=== PATIENT | male | born 1965 | race Asian ===

== ENCOUNTER 2020-02-02 10:07 | Outpatient (REF) | payer OTHER, SELFPAY ==
[2020-02-02 11:41] LABS: Anion Gap 11 (12-20); Blood Urea Nitrogen 13 mg/dL (9-16); Calcium 8.7 mg/dL (8.4-10.2); Carbon Dioxide 31 mmol/L (22-29); Chloride 101 mmol/L (96-108); Cholesterol 193 mg/dL; Estimated Glomerular Filt Rate > 60; Glucose Fasting 104 mg/dL (60-99); HDL Cholesterol 45 mg/dL; LDL Cholesterol Calculated 126 mg/dl; Potassium 4.3 mmol/l (3.3-5.1); Sodium 139 mmol/L (135-145); Triglycerides 111 mg/dL
== END 2020-02-02 10:08 | disposition home or self-care (01) ==
LOC: HO.HMGCLDS 10:07
PROVIDERS: PCP Internal Medicine; Visit Provider Internal Medicine
DX: E78.9 Disorder of lipoprotein metabolism, unspecified (principal); R73.01 Impaired fasting glucose
CPT/HCPCS: 80048; 80061

== ENCOUNTER 2020-07-20 12:31 | Outpatient (REF) | payer BC, OTHER, SELFPAY ==
[2020-07-20 14:40] LABS: Carbon Dioxide 28 mmol/L (22-29); Chloride 103 mmol/L (96-108); Potassium 4.2 mmol/L (3.3-5.1); Sodium 139 mmol/L (135-145)
[2020-07-20 14:41] LABS: Alanine Aminotransferase 23 U/L (0-40); Albumin Level 4.3 g/dL (3.5-5.0); Alkaline Phosphatase 60 U/L (39-117); Anion Gap 12 (12-20); Aspartate Amino Transferase 19 U/L (5-37); Bilirubin Total 0.6 mg/dL (0.0-1.0); Blood Urea Nitrogen 12 mg/dL (9-16); Calcium 9.3 mg/dL (8.4-10.2); Cholesterol 194 mg/dL; Estimated Glomerular Filt Rate > 60; Glucose Fasting 102 mg/dL (60-99); HDL Cholesterol 46 mg/dL; LDL Cholesterol Calculated 123 mg/dl; Total Protein 7.2 g/dL (6.5-8.0); Triglycerides 127 mg/dL
== END 2020-07-20 12:32 | disposition home or self-care (01) ==
LOC: HO.HMGCLDS 12:31
PROVIDERS: PCP Internal Medicine; Visit Provider Internal Medicine
DX: E78.9 Disorder of lipoprotein metabolism, unspecified (principal); R73.01 Impaired fasting glucose
CPT/HCPCS: 36415; 80053; 80061

== ENCOUNTER 2021-05-31 08:14 | Outpatient (REF) | payer OTHER, MEDICAID, SELFPAY ==
[2021-05-31 11:34] LABS: Alanine Aminotransferase 20 U/L (0-40); Albumin Level 3.9 g/dL (3.5-5.0); Alkaline Phosphatase 50 U/L (39-117); Anion Gap 11 (12-20); Aspartate Amino Transferase 17 U/L (5-37); Bilirubin Total 0.6 mg/dL (0.0-1.0); Blood Urea Nitrogen 12 mg/dL (9-16); Calcium 9.2 mg/dL (8.4-10.2); Carbon Dioxide 28 mmol/L (22-29); Chloride 105 mmol/L (96-108); Cholesterol 196 mg/dL; Estimated Glomerular Filt Rate > 60; Glucose Fasting 111 mg/dL (60-99); HDL Cholesterol 42 mg/dL; LDL Cholesterol Calculated 125 mg/dl; Potassium 4.2 mmol/L (3.3-5.1); Sodium 140 mmol/L (135-145); Total Protein 6.8 g/dL (6.5-8.0); Triglycerides 148 mg/dL
[2021-05-31 11:59] LABS: Syphilis Screen Nonreactive (Nonreactive)
[2021-05-31 12:15] LABS: Estimated Average Glucose 137 mg/dL; Hemoglobin A1c % 6.4 %
[2021-05-31 12:20] LABS: HBS Num1 0.33 mIU/mL (0-7.99); HIV AB/AG Nonreactive (Nonreactive); HIV Num 1 0.07 S/CO (0.00-0.99); ~HepC Num1 0.11 S/CO (0.00-0.79); ~Hepatitis B Surface Antibody NONREACTIVE (Nonreactive); ~Hepatitis C Antibody Nonreactive (Nonreactive)
[2021-06-01 06:17] LABS: Herpes Simplex Type 1 IgG <0.90 index; Herpes Simplex Type 2 IgG 3.94 index
== END 2021-05-31 08:15 | disposition home or self-care (01) ==
LOC: HO.HMGCLDS 08:14
PROVIDERS: PCP Internal Medicine; Visit Provider Internal Medicine
DX: Z11.3 Encounter for screening for infections with a predominantly sexual mode of transmission (principal); E78.9 Disorder of lipoprotein metabolism, unspecified; J45.909 Unspecified asthma, uncomplicated; R73.01 Impaired fasting glucose
CPT/HCPCS: 36415; 80053; 80061; 83036; 86695; 86696; 86706; 86780; 86803; 87389

== ENCOUNTER 2021-09-19 09:30 | Outpatient (RCR) | payer OTHER, MEDICAID, SELFPAY ==
--- NOTE | 2021-08-24 13:59 | MHC.OT.EP ---
[address] [phone] Occupational Therapy Plan of Care Date of Evaluation: 08/24/21 Diagnosis: Right lateral epicondylis Assessment: Pt. was referred to OT for R lateral epicondylitis. Pt. reports R elbow pain started before T[place] and believed it was from playing pool. He stopped playing, and sustained a slip and fall on the ice one week later. That pain resolved, although R lateral elbow pain persists, with occasional radiating pain and tingling to forearm and wrist. Pt. has trialed rest, ice, and ibuprofen consistently without relief. R elbow and wrist ROM and strength are within normal limits, although pt. is having consistent pain with daily activities and is unable to work out at the gym. A 13% limitation is reported per the Quick DASH assessment. Ongoing skilled OT is recommended to address previously noted barriers and assist in return to PLOF. Frequency and Duration: The patient will be seen 2x/wk for 4 weeks Short Term Goals: IND with HEP IND with orthosis use as needed IND with joint protection techniques and activity modification Report <2/10 pain with BADL's/IADL's Wire Rope Fabrication Supervisor Goals: Pain free with BADL's/IALD's IND with progression of HEP QUICK DASH <8% R gross grasp >90# Treatment Plan: Therapeutic Exercise Therapeutic Activity Home Exercise Program Splinting Patient Education Ultrasound NMES Iontophoresis MHP Cold Packs Soft Tissue Mobilization Kinesiotaping Electronically Signed By: Lali Mckeon MS OTR/L Please Sign and return to therapist. Thank you once again for your referral.
== END 2021-12-13 13:57 | disposition home or self-care (01) ==
LOC: HO.OT 09:30
PROVIDERS: PCP Internal Medicine; Visit Provider Physician Assistant
DX: M77.11 Lateral epicondylitis, right elbow (principal)
CPT/HCPCS: 97033; 97035; 97110; 97140; 97165

== ENCOUNTER 2021-11-28 08:50 | Outpatient (REF) | payer OTHER, MEDICAID, SELFPAY ==
[2021-11-28 11:34] LABS: Estimated Average Glucose 146 mg/dL; Hemoglobin A1c % 6.7 %
[2021-11-28 11:46] LABS: Alanine Aminotransferase 25 U/L (0-40); Albumin Level 4.2 g/dL (3.5-5.0); Alkaline Phosphatase 55 U/L (39-117); Anion Gap 13 (12-20); Aspartate Amino Transferase 18 U/L (5-37); Bilirubin Total 0.4 mg/dL (0.0-1.0); Blood Urea Nitrogen 16 mg/dL (9-16); Calcium 8.9 mg/dL (8.4-10.2); Carbon Dioxide 26 mmol/L (22-29); Chloride 104 mmol/L (96-108); Estimated Glomerular Filt Rate > 60; Glucose Random 117 mg/dL (60-115); Potassium 4.3 mmol/L (3.3-5.1); Sodium 139 mmol/L (135-145); Total Protein 7.1 g/dL (6.5-8.0)
[2021-11-28 12:08] LABS: Creatinine Urine 115.98 mg/dL; Microalbumin Urine < 5.0 mg/L
== END 2021-11-28 08:51 | disposition home or self-care (01) ==
LOC: HO.HMGCLDS 08:50
PROVIDERS: PCP Internal Medicine; Visit Provider Internal Medicine
DX: E11.9 Type 2 diabetes mellitus without complications (principal); E78.9 Disorder of lipoprotein metabolism, unspecified; J45.909 Unspecified asthma, uncomplicated
CPT/HCPCS: 36415; 80053; 82043; 83036

== ENCOUNTER 2022-05-09 07:50 | Outpatient (REF) | payer BC, MEDICAID, SELFPAY ==
[2022-05-09 11:54] LABS: MANUAL DIFF FLAG NO
[2022-05-09 12:02] LABS: Basophils Percent Auto 0.6 % (0-2); Eosinophils Percent Auto 0.9 % (0-4); Hematocrit 40.7 % (42.0-52.0); Hemoglobin 13.8 g/dl (14.0-18.0); Imm Gran Abs Auto 0.01 X10*3/uL (0.00-0.03); Imm Gran Pct Auto 0.2 % (0.0-0.4); Lymphocytes Absolute Auto 1.3 X10*3/uL (1.2-4.9); Lymphocytes Percent Auto 27.4 % (20-40); Mean Corpuscular HGB Conc 33.9 g/dl (31.0-36.0); Mean Corpuscular Hemoglobin 28.6 pg (27.0-33.0); Mean Corpuscular Volume 84.3 fL (80.0-98.0); Mean Platelet Volume 10.1 fL (9.4-12.4); Monocytes Absolute Auto 0.4 X10*3/uL (0.1-1.2); Monocytes Percent Auto 8.6 % (2-11); Neutrophils Absolute Auto 2.9 x10*3/uL (2.0-8.3); Neutrophils Percent Auto 62.3 % (45-73); Platelet Count 187 X10*3/uL (160-400); Red Blood Count 4.83 X10*6/uL (4.60-5.80); Red Cell Distribution Width 12.4 % (11.0-16.0); White Blood Count 4.7 X10*3/uL (4.8-10.8)
[2022-05-09 12:11] LABS: Creatinine Urine 113.23 mg/dL; Microalbumin Urine < 5.0 mg/L
[2022-05-09 12:42] LABS: Alanine Aminotransferase 26 U/L (0-40); Alkaline Phosphatase 53 U/L (39-117); Anion Gap 14 (12-20); Aspartate Amino Transferase 19 U/L (5-37); Bilirubin Total 0.5 mg/dL (0.0-1.0); Blood Urea Nitrogen 14 mg/dL (9-16); Calcium 8.9 mg/dL (8.4-10.2); Carbon Dioxide 24 mmol/L (22-29); Chloride 105 mmol/L (96-108); Cholesterol 243 mg/dL; Estimated Glomerular Filt Rate > 60; Glucose Fasting 111 mg/dL (60-99); HDL Cholesterol 42 mg/dL; LDL Cholesterol Calculated 171 mg/dl; Sodium 139 mmol/L (135-145); Total Protein 6.7 g/dL (6.5-8.0); Triglycerides 150 mg/dL
[2022-05-09 12:51] LABS: Estimated Average Glucose 148 mg/dL; Hemoglobin A1c % 6.8 %
== END 2022-05-09 07:51 | disposition home or self-care (01) ==
LOC: HO.HMGCLDS 07:50
PROVIDERS: PCP Internal Medicine; Visit Provider Internal Medicine
DX: Z00.01 Encounter for general adult medical examination with abnormal findings (principal); E11.9 Type 2 diabetes mellitus without complications; E78.9 Disorder of lipoprotein metabolism, unspecified
CPT/HCPCS: 36415; 80053; 80061; 82043; 83036; 85025

== ENCOUNTER 2022-07-24 13:27 | Outpatient (REF) | payer BC, MEDICAID, SELFPAY ==
[2022-07-24 16:16] LABS: TSH reflex Free T4 0.92 uIU/mL (0.32-4.0)
== END 2022-07-24 13:28 | disposition home or self-care (01) ==
LOC: HO.LAB 13:27
PROVIDERS: PCP Internal Medicine; Visit Provider Nurse Practitioner
DX: R19.8 Other specified symptoms and signs involving the digestive system and abdomen (principal)
CPT/HCPCS: 36415; 84443

== ENCOUNTER 2022-09-12 07:42 | Outpatient (REF) | payer BC, SELFPAY ==
[2022-09-12 08:06] LABS: MANUAL DIFF FLAG NO
[2022-09-12 08:31] LABS: Basophils Percent Auto 0.4 % (0-2); Eosinophils Absolute Auto 0.1 X10*3/uL (0.0-0.4); Eosinophils Percent Auto 1.6 % (0-4); Hematocrit 41.5 % (42.0-52.0); Hemoglobin 14.1 g/dl (14.0-18.0); Imm Gran Abs Auto 0.03 X10*3/uL (0.00-0.03); Imm Gran Pct Auto 0.6 % (0.0-0.4); Lymphocytes Absolute Auto 1.5 X10*3/uL (1.2-4.9); Lymphocytes Percent Auto 29.6 % (20-40); Mean Corpuscular Hemoglobin 29.1 pg (27.0-33.0); Mean Corpuscular Volume 85.6 fL (80.0-98.0); Mean Platelet Volume 10.1 fL (9.4-12.4); Monocytes Absolute Auto 0.4 X10*3/uL (0.1-1.2); Neutrophils Percent Auto 59.8 % (45-73); Platelet Count 236 X10*3/uL (160-400); Red Blood Count 4.85 X10*6/uL (4.60-5.80); Red Cell Distribution Width 12.3 % (11.0-16.0)
[2022-09-12 08:46] LABS: Estimated Average Glucose 143 mg/dL; Hemoglobin A1c % 6.6 %
[2022-09-12 09:16] LABS: Alanine Aminotransferase 27 U/L (0-40); Albumin Level 3.9 g/dL (3.5-5.0); Alkaline Phosphatase 56 U/L (39-117); Anion Gap 10 (12-20); Aspartate Amino Transferase 17 U/L (5-37); Bilirubin Total 0.4 mg/dL (0.0-1.0); Blood Urea Nitrogen 12 mg/dL (9-16); Calcium 9.1 mg/dL (8.4-10.2); Carbon Dioxide 26 mmol/L (22-29); Chloride 105 mmol/L (96-108); Cholesterol 176 mg/dL; Estimated Glomerular Filt Rate > 60; Glucose Fasting 120 mg/dL (60-99); HDL Cholesterol 41 mg/dL; LDL Cholesterol Calculated 106 mg/dl; Sodium 137 mmol/L (135-145); Triglycerides 146 mg/dL
[2022-09-12 09:19] LABS: TSH reflex Free T4 1.26 uIU/mL (0.32-4.0)
[2022-09-12 11:23] LABS: Creatinine Urine 102.89 mg/dL; Microalbumin Urine < 5.0 mg/L
== END 2022-09-12 07:43 | disposition home or self-care (01) ==
LOC: HO.LAB 07:42
PROVIDERS: PCP Internal Medicine; Visit Provider Internal Medicine
DX: E11.9 Type 2 diabetes mellitus without complications (principal); E78.9 Disorder of lipoprotein metabolism, unspecified; R19.8 Other specified symptoms and signs involving the digestive system and abdomen; G47.20 Circadian rhythm sleep disorder, unspecified type
CPT/HCPCS: 36415; 80053; 80061; 82043; 83036; 84443; 85025

== ENCOUNTER 2022-09-19 08:16 | Outpatient (AMB) | payer BC, SELFPAY ==
[2022-09-19 08:33] VITALS: BP 110/70; PULSE 93; O2SAT 94; BMI 26.7
--- NOTE | 2022-09-19 08:33 | MHC.PC.OV ---
Vital Signs 09/19/22 08:33 Height 5 ft 9 in Weight 181 lb BMI 26.7 BP 110/70 Blood Pressure Location Rt brachial Position Sitting Pulse 93 Pulse Source Pulse Oximeter Pulse Oximetry (%) 94 Oxygen Delivery Method Room Air Intake Visit Reasons: 4m DM Allergies shrimp Allergy (Unknown, Verified 07/24/22 13:37) HIVES shellfish Allergy (Unknown, Uncoded 05/26/21 15:17) anaphylaxis Medication List - Last Reconciled 09/19/22 by Efrani Villarreal MD albuterol sulfate 90 mcg/actuation (ProAir HFA) 1 puff inhalation Q6H PRN atorvastatin 60 mg (1.5 x 40 mg) PO DAILY 90 days Tobacco use date assessed: 05/22/22 HPI 4m DM HPI Details Patient is a 57-year-old gentleman came in today for his regular 4 month follow-up appointment Labs done recently reviewed Patient is diet-controlled diabetic his hemoglobin A1c is 6.6 labs were done this month on 26 TSH level is normal LDL is 106 patient is on simvastatin 60 mg daily. Patient has seen Gastroenterology as well due to having recurrent bowel movements colonoscopy was negative. Patient would like to switch to [facility] as it is closer to his home and he can just walk over. [facility] Medical History Asthma, mild High cholesterol Lipid disorder Seborrheic dermatitis Surgical History H/O colonoscopy History of torsion of testis Family History Father No problems noted. Mother No problems noted. Paternal Aunt Lung cancer Smoker Diabetes mellitus Maternal Grandfather Diabetes mellitus CVD (cardiovascular disease) Sister No problems noted. 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 Elmo Mensah, Karen Cooper, Danial Weber and colleagues, with an educational tena from [employer]. Review of Systems Const Denies chills and Denies fever(s) ENT Denies epistaxis and Denies nasal discharge Card Denies chest pain Resp Denies chest congestion, Denies cough and Denies hemoptysis GI Denies diarrhea and Denies nausea Skin/Breast Denies rash Neuro Reports no additional complaints Psych Reports no additional complaints Endo Reports no additional complaints Physical exam (Primary Care) Vital Signs: Last Vital Signs Pulse 93 09/19/22 08:33 BP 110/70 09/19/22 08:33 Pulse Ox 94 09/19/22 08:33 Oxygen Delivery Method Room Air 09/19/22 08:33 BMI result Body Mass Index 26.7 Tobacco/Smoking Status: Tobacco use Status Tobacco use date assessed 05/22/22 09/19/22 08:35 Patient Tobacco Use Status Never used Tobacco 09/19/22 08:35 e-Cigarette/Vaping Use Never Used 09/19/22 08:35 Thrive Assessment: Date of Thrive Assessment Date Thrive assessed 05/26/21 09/19/22 08:35 Const General: cooperative, comfortable and no acute distress Orientation/consciousness: patient oriented x3 HENMT Head: Yes normocephalic Eyes General: appearance normal, both eyes and all related structures Neck Neck: Yes supple Resp Effort & Inspection: normal respiratory effort, no cough and no stridor Cardio Rhythm: regular rhythm Heart sounds: S1 normal heart sound present and S2 normal heart sound present Skin General skin exam: turgor normal Neuro General: patient oriented x3, tone normal and moves all extremities Extrem Right lower extremity: no edema Left lower extremity: no edema Assessment and Plan Assessment & Plan (1) Diet-controlled diabetes mellitus: Code(s): E11.9 - Type 2 diabetes mellitus without complications (2) Lipid disorder: Code(s): E78.9 - Disorder of lipoprotein metabolism, unspecified Plan Patient is a 57-year-old gentleman came in today for his regular 4 month follow-up appointment Labs done recently reviewed Patient is diet-controlled diabetic his hemoglobin A1c is 6.6 labs were done this month on 26 TSH level is normal LDL is 106 patient is on simvastatin 60 mg daily. Patient has seen Gastroenterology as well due to having recurrent bowel movements colonoscopy was negative. Patient would like to switch to [facility] as it is closer to his home and he can just walk over. Coding Level of Care Code Est Pt Level 3 (32627) Diagnoses Diet-controlled diabetes mellitus E11.9 Lipid disorder E78.9
== END 2022-09-19 13:12 | disposition home or self-care (01) ==
PROVIDERS: Visit Provider Internal Medicine
DX: E11.9 Type 2 diabetes mellitus without complications (principal); E78.9 Disorder of lipoprotein metabolism, unspecified
CPT/HCPCS: 99213

== ENCOUNTER 2022-10-26 08:18 | Outpatient (REF) | payer BC, SELFPAY ==
--- NOTE | ~2022-10-26 | FL_ITS ---
EXAMINATION: XR UPPER GI SERIES WITH SMALL BOWEL CLINICAL INFORMATION: Other specified symptoms and signs involving the digestive system COMPARISON: None available. TECHNIQUE: Upper GI and small bowel follow-through was performed using thin and thick barium and effervescent granules. FINDINGS: Esophageal motility is normal. There is a small sliding-type hiatal hernia and Schatzki ring. No gastroesophageal reflux is seen. The stomach and duodenum are normal-appearing. No fold thickening, mass, ulcer or stricture is seen. Small bowel motility is normal. Oral contrast reaches the colon at 65 minutes. The small bowel mucosal pattern is normal. No mass, evidence of obstruction, or fold thickening is seen. FLUOROSCOPY TIME: 1.1 minutes DOSE AREA PRODUCT: 11.6 gutierrez per centimeter squared. Total dose 37 mgy. 25 saved fluoroscopic images and 9 overhead images. FL/FL upper GI small bowel IMPRESSION: Small sliding-type hiatal hernia and Schatzki ring.
== END 2022-10-26 08:19 | disposition home or self-care (01) ==
LOC: HO.XRAY 08:18
PROVIDERS: PCP Internal Medicine; Visit Provider Nurse Practitioner
DX: R19.8 Other specified symptoms and signs involving the digestive system and abdomen (principal)
CPT/HCPCS: 74240; 74248

== ENCOUNTER → 2022-10-26 08:19 | Outpatient (BNV) | payer BC, SELFPAY | PROVIDERS: PCP Internal Medicine; Visit Provider Radiology Diagnostic Radiology | DX: R19.8 Other specified symptoms and signs involving the digestive system and abdomen (principal) | CPT/HCPCS: 74246 ==

== ENCOUNTER 2023-03-26 10:14 | Outpatient (AMB) | payer BC, SELFPAY ==
--- NOTE | 2023-03-26 10:14 | A.OFFPC_ITS ---
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 Villarreal / [facility] Intake Note: Patient is a new patient here to transfer care/DM Sharepoint Trainer Required: No Allergies shrimp Allergy (Unknown, Verified 03/26/23 10:15) HIVES shellfish Allergy (Unknown, Uncoded 03/26/23 10:15) anaphylaxis Medication List - Last Reconciled 03/26/23 by Ida Ramey MD albuterol sulfate 90 mcg/actuation (ProAir HFA) 1 puff inhalation Q6H PRN atorvastatin 60 mg (1.5 x 40 mg) PO DAILY 90 days Tobacco use date assessed: 03/26/23 Dental Screening Dental Screen Date: 03/26/23 Did you have a dental visit in the last 12 months?: Yes Did you have a dental problem in the last 6 months where you did not have access to dental care?: No Was dental information given to patient?: Patient has dentist HPI [employer] 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 Villarreal / [facility] HPI Details 57-year-old male with diabetes mellitus asthma Schatzki's ring hypercholesterolemia coming in for the 1st time. Patient has been seeing a doctor in [place].. Noted to have had upper GI series in October 2022 showing a small sliding hiatal hernia and Schatzki's ring.. congestion chest - 2 week , no fevers, , am cough, , GRECO at night no ear, sore throat PFSH Medical History (Updated 03/26/23 @ 11:15 by Ida Ramey MD) Right tennis elbow Viral wart on finger Bilateral plantar wart Encounter for general adult medical examination with abnormal findings Lipid disorder Seborrheic dermatitis Asthma, mild Surgical History (Updated 03/26/23 @ 10:53 by Ida Ramey MD) H/O colonoscopy History of torsion of testis Family History (Updated 03/26/23 @ 10:54 by Ida Ramey MD) Father No problems noted. Mother No problems noted. Paternal Aunt Lung cancer Smoker Diabetes mellitus Maternal Grandfather Diabetes mellitus CVD (cardiovascular disease) Sister No problems noted. 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 1. Little interest or pleasure in doing things: not at all 2. Feeling down, depressed, or hopeless: not at all 3. Trouble falling or staying asleep, or sleeping too much: not at all 4. Feeling tired or having little energy: not at all 5. Poor appetite or overeating: not at all 6. Feeling bad about yourself - or that you are a failure or have let yourself or your family down: not at all 7. Trouble concentrating on things, such as reading the newspaper or watching television: not at all 8. Moving or speaking so slowly that other people could have noticed. Or the opposite - being so fidgety or restless that you have been moving around a lot more than usual: not at all 9. Thoughts that you would be better off or of hurting yourself in some way: not at all Total score: 0 Depression Screening Interpretation: Negative Depression Screening Done: Yes Source: Developed by Drs. Elmo Mensah, Karen Cooper, Danial Weber and colleagues, with an educational tena from [employer]. Thrive Questionnaire Date Thrive assessed: 03/26/23 I am a: Patient What is your living situation today?: I have a steady place to live Within the past 12 months, did the food you bought not last and you didn't have the money to get more?: Never true Within the past 12 months, did you worry whether your food would run out before you got money to buy more?: Never true Do you have trouble paying for medicines?: No Do you have trouble getting transportation to medical appointments?: No Do you have trouble paying your heating and electricity bill?: No Do you have trouble taking care of your child, family member or friend?: No Do you have trouble with day-to-day activities such as bathing, preparing meals, shopping, managing finances, etc.?: No Are you currently unemployed and looking for a job?: No Are you interested in more education?: No Please select the resources that you would like help with: None THRIVE Score: 0 AUDIT C Alcohol Use Questionnaire (AUDIT-C) 1. How often do you have a drink containing alcohol?: Never 3. How often do you have six or more drinks on one occasion?: Never Total Score: 0 CHRIST-7 AMB Questionnaire CHRIST-7 Date CHRIST - 7 assessed: 03/26/23 Feeling nervous, anxious, or on edge: 0 = Not at all Not being able to stop or control worryin = Not at all Worrying too much about different things: 0 = Not at all Trouble relaxin = Not at all Being so restless that it is hard to sit still: 0 = Not at all Becoming easily annoyed or irritable: 0 = Not at all Feeling afraid as if something awful might happen: 0 = Not at all Total CHRIST-7 score (0-4 normal; 5-9 mild; 10-14 moderate; 15-21 severe): 0 Source: Developed by Drs. Elmo Mensah, Karen Cooper, Danial Weber and colleagues, with an educational tena from [employer]. Physical exam (Primary Care) Vital Signs: Last Vital Signs Pulse 80 03/26/23 10:16 BP 112/78 03/26/23 10:16 Pulse Ox 98 03/26/23 10:16 Oxygen Delivery Method Room Air 03/26/23 10:16 BMI result Body Mass Index 26.0 Tobacco/Smoking Status: Tobacco use Status Tobacco use date assessed 03/26/23 03/26/23 10:17 Patient Tobacco Use Status Never used Tobacco 03/26/23 10:17 e-Cigarette/Vaping Use Never Used 03/26/23 10:17 PHQ-9: PHQ-9 Score PHQ-9: Total score 0 03/26/23 10:45 Depression Screening Interpretation: Negative Thrive Assessment: Date of Thrive Assessment Date Thrive assessed 03/26/23 03/26/23 10:17 Const General: alert; No acute distress Eyes Conjunctivae: conjunctivae normal Resp Auscultation: clear to auscultation bilaterally Cardio Rate: regular rate Rhythm: regular rhythm GI Inspection: Yes normal to inspection Extrem General: Yes normal to inspection and No edema Results AMB Hemoglobin A1c AMB Hemoglobin A1c 7.9 % Last Edit by NICK Ayala on 03/26/23 10:37 Immunizations pneumoc 20-earlene conj-dip cr(PF) 0.5 mL IM syringe Performing Provider: Ida Ramey MD Performing Location: [facility] Administered by: NICK Ayala on 03/26/23 11:18 Dose Route Admin Location Dispensed Lot Number Expiration Date NDC Manager Food Beverage 0.5 mL IM Left Deltoid 0.5 mL [id number] 07/19/24 2913-0062-47 [id number] VIS Given Date VIS Provided VIS Publication Date 03/26/23 Single Vaccine 21 Eligibility Eligibility Date Funding Source Not VFC Eligible 03/26/23 Private Results Reviewed Results Reviewed: Laboratory Last Values Hgb A1c (Clinic) 7.9 % (4.0-6.0) H 03/26/23 09:27 Assessment and Plan Assessment & Plan (1) Type 2 diabetes mellitus with hyperglycemia: Code(s): E11.65 - Type 2 diabetes mellitus with hyperglycemia Plan: Decrease the amount of carbohydrate intake, pasta, bread, rice and potatoes are all sugar and that is aside from all the sweet stuff, remember that fruits are good but they are Sweet also. Hemoglobin A1c goal of less than 6.5. Patient is diet controlled had a long discussion with the patient regarding the hemoglobin A1c coming up to 7 point 6. Discussed about Ophthalmology evaluation yearly and foot exams (2) Hypercholesterolemia: Code(s): E78.00 - Pure hypercholesterolemia, unspecified Plan: Avoid fried foods, chicken skin, eggs, butter margarine, pastries and meat. Be it pork or beef they have a lot of cholesterol LDL goal of less than 130 and triglyceride of less than 150 patient is on atorvastatin 60 mg once a day discussed about repeating the blood work. (3) Hiatal hernia: Comment: October 2022 small sliding Code(s): K44.9 - Diaphragmatic hernia without obstruction or gangrene Plan: Avoid the foods that causes that usually spicy foods, tomato products, juices, coffee, soda and foods that your sensitive to. After eating do not lie down, allow 3-4 hours before in lie down. And keep the head of bed above 30 degrees to avoid the acid from going up. (4) Schatzki's ring: Comment: October 2022 Code(s): K22.2 - Esophageal obstruction Plan: Patient is not bothered by this. (5) Asthma, mild: Code(s): J45.909 - Unspecified asthma, uncomplicated Plan: Continue with the inhaler as needed (6) Upper respiratory infection: Code(s): J06.9 - Acute upper respiratory infection, unspecified Plan: Reassurance and discussed about Mucinex for productive cough, Delsym for dry cough and nasal sprays for congestion. If getting worse to reach out to us. Orders: Orders AMB Hemoglobin A1c Today E11.65 - Type 2 diabetes mellitus with hyperglycemia Complete Blood Count Auto Diff Today E11.65 - Type 2 diabetes mellitus with hyperglycemia Comprehensive Met. Panel Today E11.65 - Type 2 diabetes mellitus with hyperglycemia Free T4 (Free Thyroxine) Today E11.65 - Type 2 diabetes mellitus with hyperglycemia Thyroid Stimulating Hormone Today E11.65 - Type 2 diabetes mellitus with hyperglycemia Lipid Panel Today E11.65 - Type 2 diabetes mellitus with hyperglycemia, E78.00 - Pure hypercholesterolemia, unspecified Microalbumin, Random (w Creat) Today E11.65 - Type 2 diabetes mellitus with hyperglycemia Prostate Specific Antigen Scr Today E11.65 - Type 2 diabetes mellitus with hyperglycemia Pneumococcal 20 Immunization Today Z23 - Encounter for immunization Creatinine Urine Today E11.65 - Type 2 diabetes mellitus with hyperglycemia Vitamin B12 and Folate Today E11.65 - Type 2 diabetes mellitus with hyperglycemia Coding Level of Care Code Est Pt Level 4 (35304) Diagnoses Type 2 diabetes mellitus with hyperglycemia E11.65 Hypercholesterolemia E78.00 Hiatal hernia K44.9 Schatzki's ring K22.2 Asthma, mild J45.909 Upper respiratory infection J06.9
[2023-03-26 10:16] VITALS: BP 112/78; PULSE 80; O2SAT 98; BMI 26.0
== END 2023-03-26 11:20 | disposition home or self-care (01) ==
PROVIDERS: PCP Internal Medicine; Visit Provider Internal Medicine
DX: E11.65 Type 2 diabetes mellitus with hyperglycemia (principal); E78.00 Pure hypercholesterolemia, unspecified; K44.9 Diaphragmatic hernia without obstruction or gangrene; K22.2 Esophageal obstruction; J45.909 Unspecified asthma, uncomplicated; J06.9 Acute upper respiratory infection, unspecified; Z23 Encounter for immunization
CPT/HCPCS: 83036; 90471; 90677; 99214

== ENCOUNTER 2023-06-14 08:36 | Outpatient (REF) | payer BC, SELFPAY ==
[2023-06-14 09:02] LABS: MANUAL DIFF FLAG NO
[2023-06-14 09:35] LABS: Basophils Percent Auto 0.4 % (0-2); Eosinophils Absolute Auto 0.1 X10*3/uL (0.0-0.4); Eosinophils Percent Auto 1.3 % (0-4); Hematocrit 41.4 % (42.0-52.0); Imm Gran Abs Auto 0.02 X10*3/uL (0.00-0.03); Imm Gran Pct Auto 0.4 % (0.0-0.4); Lymphocytes Absolute Auto 1.4 X10*3/uL (1.2-4.9); Lymphocytes Percent Auto 30.3 % (20-40); Mean Corpuscular HGB Conc 33.8 g/dl (31.0-36.0); Mean Corpuscular Hemoglobin 29.2 pg (27.0-33.0); Mean Corpuscular Volume 86.3 fL (80.0-98.0); Mean Platelet Volume 9.2 fL (9.4-12.4); Monocytes Absolute Auto 0.4 X10*3/uL (0.1-1.2); Monocytes Percent Auto 7.9 % (2-11); Neutrophils Absolute Auto 2.8 x10*3/uL (2.0-8.3); Neutrophils Percent Auto 59.7 % (45-73); Platelet Count 270 X10*3/uL (160-400); Red Cell Distribution Width 12.6 % (11.0-16.0); White Blood Count 4.7 X10*3/uL (4.8-10.8)
[2023-06-14 10:06] LABS: Creatinine Urine 147.24 mg/dL; Microalbumin Urine < 5.0 mg/L
[2023-06-14 10:16] LABS: Alanine Aminotransferase 21 U/L (0-40); Albumin Level 4.2 g/dL (3.5-5.0); Alkaline Phosphatase 57 U/L (39-117); Anion Gap 13 (12-20); Aspartate Amino Transferase 15 U/L (5-37); Bilirubin Total 0.4 mg/dL (0.0-1.0); Blood Urea Nitrogen 13 mg/dL (9-16); Calcium 9.5 mg/dL (8.4-10.2); Carbon Dioxide 29 mmol/L (22-29); Chloride 104 mmol/L (96-108); Cholesterol 183 mg/dL (<200); Estimated Glomerular Filt Rate > 60; Glucose Random 119 mg/dL (60-115); HDL Cholesterol 43 mg/dL (>40); LDL Cholesterol Calculated 121 mg/dL (<100); Potassium 4.5 mmol/L (3.3-5.1); Sodium 141 mmol/L (135-145); Total Protein 7.4 g/dL (6.5-8.0); Triglycerides 95 mg/dL (<150)
[2023-06-14 10:26] LABS: Free T4 (Free Thyroxine) 0.89 ng/dL (0.71-1.85); Thyroid Stimulating Hormone 1.06 uIU/mL (0.32-4.0)
[2023-06-14 12:34] LABS: Folate 8.5 ng/mL (> or = 4.0); Prostate Specific Antigen Scr 0.86 ng/mL (<0.05-4.0); Vitamin B12 413 pg/mL (200-900)
== END 2023-06-14 08:37 | disposition home or self-care (01) ==
LOC: HO.LAB 08:36
PROVIDERS: PCP Internal Medicine; Visit Provider Internal Medicine
DX: Z12.5 Encounter for screening for malignant neoplasm of prostate (principal); E11.65 Type 2 diabetes mellitus with hyperglycemia; E78.00 Pure hypercholesterolemia, unspecified
CPT/HCPCS: 36415; 80053; 80061; 82043; 82570; 82607; 82746; 84153; 84439; 84443; 85025

== ENCOUNTER 2023-06-24 16:12 | Outpatient (AMB) | payer BC, SELFPAY ==
[2023-06-24 16:13] VITALS: BP 112/78; PULSE 75; O2SAT 98; BMI 24.2
--- NOTE | 2023-06-24 16:13 | A.OFFPC_ITS ---
Vital Signs 06/24/23 16:13 Height 5 ft 9 in Weight 164 lb 0.4 oz BMI 24.2 BP 112/78 Blood Pressure Location Lt brachial Position Sitting Pulse 75 Pulse Source Pulse Oximeter Pulse Oximetry (%) 98 Oxygen Delivery Method Room Air Intake Visit Reasons: Annual Exam/Diabetes mellitus Intake Note: Patient is here today for a physical. 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 Required: No Allergies shrimp Allergy (Unknown, Verified 06/24/23 16:13) HIVES shellfish Allergy (Unknown, Uncoded 06/24/23 16:13) anaphylaxis Medication List - Last Reconciled 06/24/23 by Ida Ramey MD albuterol sulfate 90 mcg/actuation (ProAir HFA) 1 puff inhalation Q6H PRN atorvastatin 60 mg (1.5 x 40 mg) PO DAILY 90 days Tobacco use date assessed: 06/24/23 Dental Screening Dental Screen Date: 06/24/23 Did you have a dental visit in the last 12 months?: Yes Did you have a dental problem in the last 6 months where you did not have access to dental care?: No Was dental information given to patient?: Patient has dentist HPI Annual Exam/Diabetes mellitus HPI Details 58-year-old male with diabetes mellitus hypercholesterolemia asthma coming in for follow-up. March last seen noted 12 lb weight loss. Patient is here for physical exam. [facility] Medical History (Updated 06/24/23 @ 16:53 by Ida Ramey MD) Right tennis elbow Viral wart on finger Bilateral plantar wart Encounter for general adult medical examination with abnormal findings Lipid disorder Seborrheic dermatitis Asthma, mild Surgical History (Updated 03/26/23 @ 10:53 by Ida Ramey MD) H/O colonoscopy History of torsion of testis Family History (Updated 03/26/23 @ 10:54 by Ida Ramey MD) Father No problems noted. Mother No problems noted. Paternal Aunt Lung cancer Smoker Diabetes mellitus Maternal Grandfather Diabetes mellitus CVD (cardiovascular disease) Sister No problems noted. 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 1. Little interest or pleasure in doing things: not at all 2. Feeling down, depressed, or hopeless: not at all 3. Trouble falling or staying asleep, or sleeping too much: not at all 4. Feeling tired or having little energy: not at all 5. Poor appetite or overeating: not at all 6. Feeling bad about yourself - or that you are a failure or have let yourself or your family down: not at all 7. Trouble concentrating on things, such as reading the newspaper or watching television: not at all 8. Moving or speaking so slowly that other people could have noticed. Or the opposite - being so fidgety or restless that you have been moving around a lot more than usual: not at all 9. Thoughts that you would be better off or of hurting yourself in some way: not at all Total score: 0 Depression Screening Interpretation: Negative Depression Screening Done: Yes Source: Developed by Drs. Elmo Mensah, Karen Cooper, Danial Weber and colleagues, with an educational tena from [employer]. Thrive Questionnaire Date Thrive assessed: 03/26/23 I am a: Patient What is your living situation today?: I have a steady place to live Within the past 12 months, did the food you bought not last and you didn't have the money to get more?: Never true Within the past 12 months, did you worry whether your food would run out before you got money to buy more?: Never true Do you have trouble paying for medicines?: No Do you have trouble getting transportation to medical appointments?: No Do you have trouble paying your heating and electricity bill?: No Do you have trouble taking care of your child, family member or friend?: No Do you have trouble with day-to-day activities such as bathing, preparing meals, shopping, managing finances, etc.?: No Are you currently unemployed and looking for a job?: No Are you interested in more education?: No Please select the resources that you would like help with: None Currently or been in a relationship where the following occur: no concerns reported THRIVE Score: 0 AUDIT C Alcohol Use Questionnaire (AUDIT-C) 1. How often do you have a drink containing alcohol?: Never 3. How often do you have six or more drinks on one occasion?: Never Total Score: 0 CHRIST-7 AMB Questionnaire CHRIST-7 Date CHRIST - 7 assessed: 06/24/23 Feeling nervous, anxious, or on edge: 0 = Not at all Not being able to stop or control worryin = Not at all Worrying too much about different things: 0 = Not at all Trouble relaxin = Not at all Being so restless that it is hard to sit still: 0 = Not at all Becoming easily annoyed or irritable: 0 = Not at all Feeling afraid as if something awful might happen: 0 = Not at all Total CHRIST-7 score (0-4 normal; 5-9 mild; 10-14 moderate; 15-21 severe): 0 Source: Developed by Drs. Elmo Mensah, Karen Cooper, Danial Weber and colleagues, with an educational tena from [employer]. Review of Systems Const Denies poor appetite and Denies weakness Eyes Denies no additional complaints ENT Reports Normal hearing present, Denies dizziness, Denies nasal congestion, Denies tinnitus and Denies sore throat Card Denies chest pain, Denies syncope, Denies rapid heart rate and Denies dyspnea Resp Denies cough and Denies dyspnea GI Denies change in stool character, Reports constipation, Denies diarrhea, Denies nausea and Denies vomiting Denies dysuria and Denies urinary frequency Neuro Reports Normal hearing present, Denies confusion, Denies dizziness, Denies syncope and Denies weakness Psych Denies confusion Physical exam (Primary Care) Vital Signs: Last Vital Signs Pulse 75 06/24/23 16:13 BP 112/78 06/24/23 16:13 Pulse Ox 98 06/24/23 16:13 Oxygen Delivery Method Room Air 06/24/23 16:13 BMI result Body Mass Index 24.2 Tobacco/Smoking Status: Tobacco use Status Tobacco use date assessed 06/24/23 06/24/23 16:14 Patient Tobacco Use Status Never used Tobacco 06/24/23 16:14 e-Cigarette/Vaping Use Never Used 06/24/23 16:14 PHQ-9: PHQ-9 Score PHQ-9: Total score 0 06/24/23 16:32 Depression Screening Interpretation: Negative Thrive Assessment: Date of Thrive Assessment Date Thrive assessed 03/26/23 06/24/23 16:14 Currently or been in a relationship where the following occur: no concerns reported Const General: No confusion Orientation/consciousness: No confusion HENMT Head: Yes normocephalic Ears: external ears normal and TM's normal bilaterally Face and sinus: Yes normal facial exam Mouth: moist mucous membranes Throat: Yes tonsils normal Eyes Conjunctivae: conjunctivae normal Pupils: Equal, round and reactive pupils present and Pupil accommodation reflex normal Direct Ophthalmoscopy: normal light reflex Neck Neck: No lymphadenopathy Thyroid: Thyroid normal Chest Chest palpation & inspection: normal inspection of the chest Resp Effort & Inspection: normal respiratory effort and no audible wheezes Auscultation: clear to auscultation bilaterally, no crackles, no wheezes and lung sounds not diminished Cardio Rate: regular rate Rhythm: regular rhythm Peripheral pulses: radial pulses present and dorsalis pedis present GI Other: guiaic negative prostate N Palpation (GI): no masses Auscultation: normal bowel sounds and normoactive bowel sounds Other: bilateral mild inguinal hernia Skin General skin exam: no rashes or lesions noted Rashes: no rashes Neuro General: No confusion Cranial nerves: Yes Equal, round and reactive pupils present and Yes Normal hearing present Cognition (Neuro): normal cognition Gait exam (Neuro): Normal gait present Motor exam (neuro): 5/5 motor strength present throughout Deep tendon reflexes (DTR's): Right brachioradialis reflex intensity grade: 2+, Left brachioradialis reflex intensity grade: 2+, Right patellar reflex intensity grade: 2+ and Left patellar reflex intensity grade: 2+ Extrem General: No edema Results AMB Hemoglobin A1c AMB Hemoglobin A1c 6.2 % Last Edit by NICK Ayala on 06/24/23 16:32 Results Reviewed Results Reviewed: Laboratory Last Values Hgb A1c (Clinic) 6.2 % (4.0-6.0) H 06/24/23 15:05 Assessment and Plan Assessment & Plan (1) Annual physical exam: Code(s): Z00.00 - Encounter for general adult medical examination without abnormal findings (2) Type 2 diabetes mellitus with hyperglycemia: Code(s): E11.65 - Type 2 diabetes mellitus with hyperglycemia Plan: Decrease the amount of carbohydrate intake, pasta, bread, rice and potatoes are all sugar and that is aside from all the sweet stuff, remember that fruits are good but they are Sweet also. Hemoglobin A1c goal of less than 6.5. Diet controlled (3) Hypercholesterolemia: Code(s): E78.00 - Pure hypercholesterolemia, unspecified Plan: Avoid fried foods, chicken skin, eggs, butter margarine, pastries and meat. Be it pork or beef they have a lot of cholesterol LDL goal of less than 100 and triglyceride of less than 150. On atorvastatin 60 mg once a day (4) Asthma, mild: Code(s): J45.909 - Unspecified asthma, uncomplicated Plan: Stable (5) Bilateral inguinal hernia: Code(s): K40.20 - Bilateral inguinal hernia, without obstruction or gangrene, not specified as recurrent Plan: avoid heavy lifting Orders: Orders AMB Hemoglobin A1c Today E11.65 - Type 2 diabetes mellitus with hyperglycemia Hemoglobin A1c 3 Months E78.00 - Pure hypercholesterolemia, unspecified Comprehensive Met. Panel 3 Months E78.00 - Pure hypercholesterolemia, unspecified Lipid Panel 3 Months E78.00 - Pure hypercholesterolemia, unspecified Medications: Changed From atorvastatin 60 mg (1.5 x 40 mg) PO DAILY 90 days 135 tabs 1RF To atorvastatin 80 mg (2 x 40 mg) PO DAILY 90 days 180 tabs 1RF Coding Level of Care Code Est Pt Prev Care 40-64y(37906) Diagnoses Annual physical exam Z00.00 Type 2 diabetes mellitus with hyperglycemia E11.65 Hypercholesterolemia E78.00 Asthma, mild J45.909 Bilateral inguinal hernia K40.20
== END 2023-06-24 16:57 | disposition home or self-care (01) ==
PROVIDERS: PCP Internal Medicine; Visit Provider Internal Medicine
DX: Z00.00 Encounter for general adult medical examination without abnormal findings (principal); E11.65 Type 2 diabetes mellitus with hyperglycemia; E78.00 Pure hypercholesterolemia, unspecified; J45.909 Unspecified asthma, uncomplicated; K40.20 Bilateral inguinal hernia, without obstruction or gangrene, not specified as recurrent
CPT/HCPCS: 83036; 99396

== ENCOUNTER 2024-03-02 08:08 | Outpatient (REF) | payer BC, SELFPAY ==
--- OUTSIDE RECORDS SUMMARY | 2024-03-02 08:11 | XMS_ITS | Patient Health Record ---
[facility] [place] Address [address] [place] [address] Care Team Providers Care Installer Interior Assemblies Name Role Phone Phil CABALLERO, [facility] Primary [facility] Provider Steve Alonzo Unavailable [phone] Allergies Allergen (clinical drug ingredient) Drug/Non Drug Allergy documented on EMR Reaction Allergy Type Onset Date Status Shellfish (FN) Shellfish-derived Products Unknown Drug Allergy Active Reason For Referral No Information Medications Medication SIG (Take, Route, Frequency, Duration) Notes Start Date End Date Status Atorvastatin Calcium 40 MG 1 tablet Oral ly Once a day for 30 day(s) Active ProAir HFA 108 (90 Base) MCG/ACT 1 puff as needed Inhalation every 4 hrs Active Cyclobenzaprine HCl Not-Taking Immunizations Vaccine Route Administration Date Status Comme nts COVID-19 Pfizer BioNTech Vaccine Unknown 02/03/2021 Administered 1st 05/03/2020 2nd 05/24/2020 Influenza Unknown 11/02/2020 Administered Social History Tobacco Use: Social History Observation Description Date Details (start date - stop date) Never Smoker NA - NA Tobacco Use/Smoking Question Answer Notes Are you a: nonsmoker Additional Findings: Tobacco Non-User Current no n-smoker Alcohol Screen Question Answer Notes Did you have a drink containing alcohol in the p ast year? No Points 0 Interpretation Negative Tobacco use other than smoking: Question Answer Notes Are you an other tobacco user? No Problems Problem Type SNOMED Code ICD Code Onset Dates Problem Status W/U Status Risk Notes Problem Plantar wart ([id number]) Plantar wart (B07.0) Active confirmed Plan Of Treatment Pending Test Test Name Order Date [id number] Destruction, 03-0312/21/2020 [id number] Destruction, 03-0301/03/2021 [id number]-Vzbr Destruction, 03-0301/24/2021 76134-Qqhu Destruction, 03-0304/28/2021 26649-Arae Destruction, 03-0306/23/2021 95672-Obsz Destruction, 03-0307/14/2021 93894-Ckto Destruction, 03-0308/04/2021 99367-Vquo Destruction, 03-0309/05/2021 03485 - Punch Biopsy of Skin Lesion 11/18 41116 - Punch Biopsy of Skin Additional Lesions 12/05/2020 Insurance Providers Payer Name Payer Address Payer Phone Subscriber Number Group Number Insured Name Patient Relationship to Insured Coverage Start Date Coverage End Date [facility] [address] [place] [phone] [id number] Elmo Arriola Self - patient is the insured Medical (General) History Medical History History ICD Code Lipid disorder asthma Pre Diabetes Seborrheic dermatitis Warts tendonitis Surgical History Surgery Date(Month/Year) Testicular Torsion Repair 1984
[2024-03-02 09:07] LABS: Estimated Average Glucose 128 mg/dL; Hemoglobin A1C 157.4751 umol/L; Hemoglobin A1c % 6.1 % (<6.0); Total Hemoglobin (HGBA1C) 3625.3814 umol/L
[2024-03-02 09:28] LABS: Alanine Aminotransferase 22 U/L (0-40); Alkaline Phosphatase 48 U/L (39-117); Anion Gap 10 (12-20); Aspartate Amino Transferase 22 U/L (5-37); Bilirubin Total 0.5 mg/dL (0.0-1.0); Blood Urea Nitrogen 16 mg/dL (9-16); Calcium 9.1 mg/dL (8.4-10.2); Carbon Dioxide 27 mmol/L (22-29); Chloride 107 mmol/L (96-108); Cholesterol 238 mg/dL (<200); Estimated Glomerular Filt Rate > 60; Glucose Random 107 mg/dL (60-115); HDL Cholesterol 47 mg/dL (>40); LDL Cholesterol Calculated 169 mg/dL (<100); Potassium 4.2 mmol/L (3.3-5.1); Sodium 140 mmol/L (135-145); Total Protein 6.9 g/dL (6.5-8.0); Triglycerides 111 mg/dL (<150)
[2024-03-02 09:42] LABS: Creatinine Urine 112.51 mg/dL
== END 2024-03-02 08:09 | disposition home or self-care (01) ==
LOC: HO.LAB 08:08
PROVIDERS: PCP Internal Medicine; Visit Provider Internal Medicine
DX: E11.65 Type 2 diabetes mellitus with hyperglycemia (principal); E78.00 Pure hypercholesterolemia, unspecified
CPT/HCPCS: 36415; 80053; 80061; 82570; 83036

== ENCOUNTER 2024-03-09 16:39 | Outpatient (AMB) | payer BC, SELFPAY ==
[2024-03-09 16:54] VITALS: BP 110/76; PULSE 74; TEMP 36.1; O2SAT 98; BMI 24.5
--- NOTE | 2024-03-09 16:54 | A.OFFPC_ITS ---
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 Required: No Accompanied by: Self / Same As Patient Allergies shrimp Allergy (Unknown, Verified 03/09/24 16:59) HIVES shellfish Allergy (Unknown, Uncoded 03/09/24 16:59) anaphylaxis Tobacco use date assessed: 03/09/24 Dental Screening Dental Screen Date: 03/09/24 Did you have a dental visit in the last 12 months?: Yes Did you have a dental problem in the last 6 months where you did not have access to dental care?: No Was dental information given to patient?: Patient has dentist HPI CholesterolDM HPI Details 58-year-old male with diabetes mellitus hypercholesterolemia bilateral inguinal hernia coming in for follow-up. Patient was last seen for physical recent blood work follow-up. On receiving the blood work results few days ago noted elevated cholesterol consecutively and was called. Patient has not been receiving the cholesterol medication due to some insurance issues and this was corrected and patient is now taking atorvastatin 80 mg once a day. Patient discussed about having plantar warts who has seen Podiatry and Dermatology and has been treated conservatively. [facility] Medical History (Updated 06/24/23 @ 16:53 by Ida Ramey MD) Right tennis elbow Viral wart on finger Bilateral plantar wart Encounter for general adult medical examination with abnormal findings Lipid disorder Seborrheic dermatitis Asthma, mild Surgical History (Updated 03/26/23 @ 10:53 by Ida Ramey MD) H/O colonoscopy History of torsion of testis Family History (Updated 03/26/23 @ 10:54 by Ida Ramey MD) Father No problems noted. Mother No problems noted. Paternal Aunt Lung cancer Smoker Diabetes mellitus Maternal Grandfather Diabetes mellitus CVD (cardiovascular disease) Sister No problems noted. 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 1. Little interest or pleasure in doing things: not at all 2. Feeling down, depressed, or hopeless: not at all 3. Trouble falling or staying asleep, or sleeping too much: not at all 4. Feeling tired or having little energy: not at all 5. Poor appetite or overeating: not at all 6. Feeling bad about yourself - or that you are a failure or have let yourself or your family down: not at all 7. Trouble concentrating on things, such as reading the newspaper or watching television: not at all 8. Moving or speaking so slowly that other people could have noticed. Or the opposite - being so fidgety or restless that you have been moving around a lot more than usual: not at all 9. Thoughts that you would be better off or of hurting yourself in some way: not at all Total score: 0 Depression Screening Interpretation: Negative Depression Screening Done: Yes 01847 - PHQ-9 Billing: Yes Source: Developed by Drs. Elmo Mensah, Karen Cooper, Danial Weber and colleagues, with an educational tena from [employer]. Thrive Questionnaire Date Thrive assessed: 03/09/24 I am a: Patient What is your living situation today?: I have a steady place to live Within the past 12 months, did the food you bought not last and you didn't have the money to get more?: Never true Within the past 12 months, did you worry whether your food would run out before you got money to buy more?: Never true Do you have trouble paying for medicines?: No Do you have trouble getting transportation to medical appointments?: No Do you have trouble paying your heating and electricity bill?: No Do you have trouble taking care of your child, family member or friend?: No Do you have trouble with day-to-day activities such as bathing, preparing meals, shopping, managing finances, etc.?: No Are you currently unemployed and looking for a job?: No Are you interested in more education?: No Please select the resources that you would like help with: None THRIVE Score: 0 AUDIT C Alcohol Use Questionnaire (AUDIT-C) 1. How often do you have a drink containing alcohol?: Never 3. How often do you have six or more drinks on one occasion?: Never Total Score: 0 CHRIST-7 AMB Questionnaire CHRIST-7 Date CHRIST - 7 assessed: 03/09/24 Feeling nervous, anxious, or on edge: 0 = Not at all Not being able to stop or control worryin = Not at all Worrying too much about different things: 0 = Not at all Trouble relaxin = Not at all Being so restless that it is hard to sit still: 0 = Not at all Becoming easily annoyed or irritable: 0 = Not at all Feeling afraid as if something awful might happen: 0 = Not at all Total CHRIST-7 score (0-4 normal; 5-9 mild; 10-14 moderate; 15-21 severe): 0 Source: Developed by Drs. Elmo Mensah, Karen Cooper, Danial Weber and colleagues, with an educational tena from [employer]. CHRIST-7 Assessment Billing CHRIST-7 Assessment Tool: CHRIST-7 Assessment 00398 Physical exam (Primary Care) Vital Signs: Last Vital Signs Temp 96.9 F 03/09/24 16:54 BMI result Body Mass Index 24.5 Tobacco/Smoking Status: Tobacco use Status Tobacco use date assessed 06/24/23 03/09/24 16:55 Patient Tobacco Use Status Never used Tobacco 03/09/24 16:55 e-Cigarette/Vaping Use Never Used 03/09/24 16:55 Depression Screening Interpretation: Negative Thrive Assessment: Date of Thrive Assessment Date Thrive assessed 03/26/23 03/09/24 16:55 Const General: alert; No acute distress Eyes Conjunctivae: conjunctivae normal Resp Auscultation: clear to auscultation bilaterally Cardio Rate: regular rate Rhythm: regular rhythm GI Inspection: Yes normal to inspection Extrem General: Yes normal to inspection and No edema Coding Level of Care Code Est Pt Level 4 (91476) Diagnoses Type 2 diabetes mellitus with hyperglycemia E11.65 Hypercholesterolemia E78.00 Asthma, mild J45.909 Additional Codes CHRIST-7 Assessment Billing - CHRIST-7 Assessment Tool: CHRIST-7 Assessment 03788 ([id number]) PHQ-9 - 98378 - PHQ-9 Billing: Yes ([id number]) Assessment & Plan Assessment & Plan (1) Type 2 diabetes mellitus with hyperglycemia: Code(s): E11.65 - Type 2 diabetes mellitus with hyperglycemia Category: Medical Plan: diet controlled. Decrease the amount of carbohydrate intake, pasta, bread, rice and potatoes are all sugar and that is aside from all the sweet stuff, remember that fruits are good but they are Sweet also. Discussed about the side effects/complications of diabetes with regards to visual and reminded about Ophthalmology evaluation. Had discussion regarding checking the feet also has diabetes effects the nerve as well as blood supply. (2) Hypercholesterolemia: Code(s): E78.00 - Pure hypercholesterolemia, unspecified Category: Medical Plan: noted increase in LDL , med refill done and is now taking the 80 mg of atorvastatin with no problems. Will have to retested blood work in 3 months. (3) Asthma, mild: Code(s): J45.909 - Unspecified asthma, uncomplicated Category: Medical Plan: stable on albuterol Orders: Orders Prostate Specific Antigen Scr 3 Months E11.65 - Type 2 diabetes mellitus with hyperglycemia Free T4 (Free Thyroxine) 3 Months E11.65 - Type 2 diabetes mellitus with hyperglycemia Thyroid Stimulating Hormone 3 Months E11.65 - Type 2 diabetes mellitus with hyperglycemia
== END 2024-03-09 17:19 | disposition home or self-care (01) ==
PROVIDERS: PCP Internal Medicine; Visit Provider Internal Medicine
DX: E11.65 Type 2 diabetes mellitus with hyperglycemia (principal); E78.00 Pure hypercholesterolemia, unspecified; J45.909 Unspecified asthma, uncomplicated

== ENCOUNTER → 2024-03-09 16:39 | Outpatient (BNVA) | payer BC, SELFPAY | PROVIDERS: PCP Internal Medicine; Visit Provider Internal Medicine | DX: E11.65 Type 2 diabetes mellitus with hyperglycemia (principal); E78.00 Pure hypercholesterolemia, unspecified; J45.909 Unspecified asthma, uncomplicated; Z79.899 Other long term (current) drug therapy | CPT/HCPCS: 96127 ==

== ENCOUNTER 2024-06-06 08:32 | Outpatient (REF) | payer BC, SELFPAY ==
[2024-06-06 09:37] LABS: Estimated Average Glucose 140 mg/dL; Hemoglobin A1C 173.5618 umol/L; Hemoglobin A1c % 6.5 % (<6.0); Total Hemoglobin (HGBA1C) 3663.4497 umol/L
[2024-06-06 10:03] LABS: Alanine Aminotransferase 31 U/L (0-40); Alkaline Phosphatase 50 U/L (39-117); Aspartate Amino Transferase 24 U/L (5-37); Bilirubin Total 0.5 mg/dL (0.0-1.0); Blood Urea Nitrogen 11 mg/dL (9-16); Calcium 9.2 mg/dL (8.4-10.2); Cholesterol 179 mg/dL (<200); Estimated Glomerular Filt Rate > 60; Glucose Random 105 mg/dL (60-115); HDL Cholesterol 47 mg/dL (>40); LDL Cholesterol Calculated 107 mg/dL (<100); Total Protein 6.8 g/dL (6.5-8.0); Triglycerides 127 mg/dL (<150)
[2024-06-06 10:13] LABS: Prostate Specific Antigen Scr 1.18 ng/mL (<0.05-4.0)
[2024-06-06 10:14] LABS: Anion Gap 12 (12-20); Carbon Dioxide 25 mmol/L (22-29); Chloride 105 mmol/L (96-108); Free T4 (Free Thyroxine) 0.98 ng/dL (0.71-1.85); Potassium 4.3 mmol/L (3.3-5.1); Sodium 138 mmol/L (135-145); Thyroid Stimulating Hormone 1.19 uIU/mL (0.32-4.0)
== END 2024-06-06 08:33 | disposition home or self-care (01) ==
LOC: HO.LAB 08:32
PROVIDERS: PCP Internal Medicine; Visit Provider Internal Medicine
DX: E78.00 Pure hypercholesterolemia, unspecified (principal); E11.65 Type 2 diabetes mellitus with hyperglycemia; Z12.5 Encounter for screening for malignant neoplasm of prostate
CPT/HCPCS: 36415; 80053; 80061; 83036; 84153; 84439; 84443

== ENCOUNTER 2024-06-29 17:18 | Outpatient (AMB) | payer BC, SELFPAY ==
--- NOTE | 2024-06-29 17:22 | MHC.PC.OV ---
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 Required: No Accompanied by: Self / Same As Patient Allergies shrimp Allergy (Unknown, Verified 06/29/24 17:26) HIVES shellfish Allergy (Unknown, Uncoded 06/29/24 17:26) anaphylaxis Medication List - Last Reconciled 06/29/24 by Ida Ramey MD albuterol sulfate 90 mcg/actuation (ProAir HFA) 1 puff inhalation Q6H PRN atorvastatin 80 mg PO DAILY Tobacco use date assessed: 03/09/24 Dental Screening Dental Screen Date: 03/09/24 [facility] Medical History (Updated 06/29/24 @ 17:50 by Ida Ramey MD) Right tennis elbow Viral wart on finger Bilateral plantar wart Encounter for general adult medical examination with abnormal findings Lipid disorder Seborrheic dermatitis Asthma, mild Surgical History H/O colonoscopy History of torsion of testis Family History Father No problems noted. Mother No problems noted. Paternal Aunt Lung cancer Smoker Diabetes mellitus Maternal Grandfather Diabetes mellitus CVD (cardiovascular disease) Sister No problems noted. 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 1. Little interest or pleasure in doing things: not at all 2. Feeling down, depressed, or hopeless: not at all 3. Trouble falling or staying asleep, or sleeping too much: several days 4. Feeling tired or having little energy: not at all 5. Poor appetite or overeating: not at all 6. Feeling bad about yourself - or that you are a failure or have let yourself or your family down: not at all 7. Trouble concentrating on things, such as reading the newspaper or watching television: not at all 8. Moving or speaking so slowly that other people could have noticed. Or the opposite - being so fidgety or restless that you have been moving around a lot more than usual: not at all 9. Thoughts that you would be better off or of hurting yourself in some way: not at all Total score: 1 26642 - PHQ-9 Billing: Yes Source: Developed by Drs. Elmo Mensah, Karen Cooper, Danial Weber and colleagues, with an educational tena from [employer]. Thrive Questionnaire Date Thrive assessed: 06/29/24 I am a: Patient What is your living situation today?: I have a steady place to live Within the past 12 months, did the food you bought not last and you didn't have the money to get more?: Never true Within the past 12 months, did you worry whether your food would run out before you got money to buy more?: Never true Do you have trouble paying for medicines?: No Do you have trouble getting transportation to medical appointments?: No Do you have trouble paying your heating and electricity bill?: No Do you have trouble taking care of your child, family member or friend?: No Do you have trouble with day-to-day activities such as bathing, preparing meals, shopping, managing finances, etc.?: No Are you currently unemployed and looking for a job?: No Are you interested in more education?: No Please select the resources that you would like help with: None Currently or been in a relationship where the following occur: No concerns reported THRIVE Score: 0 AUDIT C Alcohol Use Questionnaire (AUDIT-C) 1. How often do you have a drink containing alcohol?: Never 3. How often do you have six or more drinks on one occasion?: Never Total Score: 0 CHRIST-7 AMB Questionnaire CHRIST-7 Date CHRIST - 7 assessed: 06/29/24 Feeling nervous, anxious, or on edge: 0 = Not at all Not being able to stop or control worryin = Not at all Worrying too much about different things: 0 = Not at all Trouble relaxin = Not at all Being so restless that it is hard to sit still: 0 = Not at all Becoming easily annoyed or irritable: 0 = Not at all Feeling afraid as if something awful might happen: 0 = Not at all Total CHRIST-7 score (0-4 normal; 5-9 mild; 10-14 moderate; 15-21 severe): 0 Source: Developed by Drs. Elmo Mensah, Karen Cooper, Danial Weber and colleagues, with an educational tena from [employer]. CHRIST-7 Assessment Billing CHRIST-7 Assessment Tool: CHRIST-7 Assessment 39218 Review of Systems Const Denies poor appetite and Denies weakness Eyes Denies no additional complaints ENT Reports Normal hearing present, Denies dizziness, Denies nasal congestion, Denies tinnitus and Denies sore throat Card Denies chest pain, Denies syncope, Denies rapid heart rate and Denies dyspnea Resp Denies cough and Denies dyspnea GI Denies change in stool character, Reports constipation, Denies diarrhea, Denies nausea and Denies vomiting Denies dysuria and Denies urinary frequency Neuro Reports Normal hearing present, Denies confusion, Denies dizziness, Denies syncope and Denies weakness Psych Denies confusion Physical exam (Primary Care) Vital Signs: Last Vital Signs Temp 973 F H 06/29/24 17:25 Pulse 70 06/29/24 17:25 BP 124/82 06/29/24 17:25 Oxygen Delivery Method Room Air 06/29/24 17:25 BMI result Body Mass Index 24.2 Tobacco/Smoking Status: Tobacco use Status Tobacco use date assessed 03/09/24 06/29/24 17:23 Patient Tobacco Use Status Never used Tobacco 06/29/24 17:23 e-Cigarette/Vaping Use Never Used 06/29/24 17:23 PHQ-9: PHQ-9 Score PHQ-9: Total score 1 06/29/24 17:30 Thrive Assessment: Date of Thrive Assessment Date Thrive assessed 06/29/24 06/29/24 17:30 Currently or been in a relationship where the following occur: No concerns reported Const General: No confusion Orientation/consciousness: No confusion HENMT Head: Yes normocephalic Ears: external ears normal and TM's normal bilaterally Face and sinus: Yes normal facial exam Mouth: moist mucous membranes Throat: Yes tonsils normal Eyes Conjunctivae: conjunctivae normal Pupils: Equal, round and reactive pupils present and Pupil accommodation reflex normal Direct Ophthalmoscopy: normal light reflex Neck Neck: No lymphadenopathy Thyroid: Thyroid normal Chest Chest palpation & inspection: normal inspection of the chest Resp Effort & Inspection: normal respiratory effort and no audible wheezes Auscultation: clear to auscultation bilaterally, no crackles, no wheezes and lung sounds not diminished Cardio Rate: regular rate Rhythm: regular rhythm Peripheral pulses: radial pulses present and dorsalis pedis present GI Other: guaiac negative prostate N pedal pulse and pin prick good Palpation (GI): no masses Auscultation: normal bowel sounds and normoactive bowel sounds Other: bilateral inguinal hernia R > L Skin General skin exam: no rashes or lesions noted Rashes: no rashes Neuro General: No confusion Cranial nerves: Yes Equal, round and reactive pupils present and Yes Normal hearing present Cognition (Neuro): normal cognition Gait exam (Neuro): Normal gait present Motor exam (neuro): 5/5 motor strength present throughout Deep tendon reflexes (DTR's): Right brachioradialis reflex intensity grade: 2+, Left brachioradialis reflex intensity grade: 2+, Right patellar reflex intensity grade: 2+ and Left patellar reflex intensity grade: 2+ Extrem General: No edema Coding Level of Care Code Est Pt Prev Care 40-64y(23940) Diagnoses Annual physical exam Z00.00 Type 2 diabetes mellitus with hyperglycemia E11.65 Asthma, mild J45.909 Hypercholesterolemia E78.00 Additional Codes CHRIST-7 Assessment Billing - CHRIST-7 Assessment Tool: CHRIST-7 Assessment 26490 ([id number]) PHQ-9 - 30700 - PHQ-9 Billing: Yes ([id number]) Assessment & Plan Assessment & Plan (1) Annual physical exam: Code(s): Z00.00 - Encounter for general adult medical examination without abnormal findings Category: Medical Plan: Patient is advised to eat healthy, keep well hydrated, keep active and have adequate sleep. (2) Type 2 diabetes mellitus with hyperglycemia: Comment: vision works Code(s): E11.65 - Type 2 diabetes mellitus with hyperglycemia Category: Medical Plan: Decrease the amount of carbohydrate intake, pasta, bread, rice and potatoes are all sugar and that is aside from all the sweet stuff, remember that fruits are good but they are Sweet also. Hemoglobin A1c goal of less than 6.5. (3) Asthma, mild: Code(s): J45.909 - Unspecified asthma, uncomplicated Category: Medical Plan: On albuterol as needed (4) Hypercholesterolemia: Code(s): E78.00 - Pure hypercholesterolemia, unspecified Category: Medical Plan: Avoid fried foods, chicken skin, eggs, butter margarine, pastries and meat. Be it pork or beef they have a lot of cholesterol LDL goal of less than 100 and triglyceride of less than 150 Plan History of Present Illness The patient is a 59-year-old male presenting for an annual physical examination. His past medical history includes mild asthma, type 2 diabetes mellitus, hypercholesterolemia, and bilateral inguinal hernia. Last seen in February 2024, the patient exhibits controlled asthma with infrequent use of an albuterol inhaler. Diabetes management shows slight elevation in Hemoglobin A1c, now at 6.5%, and he practices dietary adjustments to control carbohydrate intake. Recent laboratory findings indicate a stable condition with normal electrolytes and renal and liver function. Current cholesterol management involves atorvastatin at the maximum dose; LDL cholesterol remains at 107 mg/dL. He highlights a family history of lung cancer and denies smoking and alcohol consumption. He mentions infrequent musculoskeletal discomfort and brief symptomatic episodes likely diet-related. Bowel movements show minor irregularities with alternating patterns of mild constipation and normal frequency. Health Maintenance - Continued monitoring of Hemoglobin A1c with a target of less than 6.5% for diabetes management. - Cholesterol management with an LDL goal of less than 100 mg/dL; current level at 107 mg/dL. - Cardiovascular risk reduction through cholesterol management with statins. - Lung cancer screenings not indicated given history, but advised watching for related symptoms. - Encourages regular eye exams with diabetes-focused evaluations. - Emphasizes regular physical activity and a balanced diet. - Immunizations up to date, including shingles vaccination. - Recommendations to hydrate well and avoid missing meals. Social History - Employment involves working from home. - Denies tobacco and alcohol use. - Dietary adjustments noted, mainly reducing carbohydrate intake. - Regular physical activity includes participating in town cleanup and exercising at a gym. - Reports a committed relationship, girlfriend noticed subcutaneous cyst. Review of Systems - Respiratory: Denies wheeze or shortness of breath. Reports well-controlled asthma. - Cardiovascular: Denies chest pain or heartburn. - Gastrointestinal: Reports irregular bowel movements, no blood in stool. - Musculoskeletal: Reports morning soreness, post-activity back pain. - Endocrine: Reports episode of symptomatic hypoglycemia. - Skin: Reports subcutaneous cyst; denies changes. - Genitourinary: Reports nocturia twice per night, otherwise normal. - Neurological: Denies any dizziness or syncope. - General: Reports weight loss. Physical Exam General: Cooperative, healthy appearing, comfortable, no acute distress and well developed Orientation: Patient oriented x3 Limitations: No limitations Head: Normal to inspection Ears: Hearing grossly normal bilaterally Nose: Normal external nose present Face and sinus: Normal facial exam Eyes: Appearance normal, both eyes and all related structures Neck: Normal visual inspection and Yes full ROM Respiratory: Normal respiratory effort and able to speak in complete sentences. Clear to auscultation bilaterally Cardiovascular: Regular rate and rhythm. Normal S1 and S2 GI: Normal to inspection. Soft to palpation and nontender Skin: No rashes or lesions noted Neuro: Patient oriented x3 Extremities: Normal to inspection Results - Labs: Hemoglobin A1c is 6.5%, LDL is 107 mg/dL. - Tests: Recent HDL cholesterol level is 47. Plan The plan addresses managing the patient's type 2 diabetes with a focus on reducing his Hemoglobin A1c through lifestyle changes and dietary modifications. Transitioning to rosuvastatin from atorvastatin was discussed for hypercholesterolemia management, aiming for an LDL level below 100 mg/dL. The patient?s asthma is well-managed with minimal use of an albuterol inhaler. Preventive measures are up-to-date, including immunizations, with his next step involving a lab follow-up in three months to evaluate the efficacy of current cholesterol management. Continuing active lifestyle and halting unnecessary carbohydrate intake are emphasized to prevent hypoglycemia and control diabetes. Patient was informed and verbally consented to the use of an ambient scribe for clinic note documentation during this visit. Discussion Notes I discussed with the patient the management of his chronic conditions, focusing on achieving optimal control of his diabetes and cholesterol levels. We reviewed the risks and benefits of transitioning from atorvastatin to rosuvastatin, emphasizing the potential for better LDL cholesterol lowering, even mentioning that further decreases could arise with injections if necessary. The significance of maintaining an A1c target of less than 6.5% for diabetes and the importance of lifestyle modifications was underscored, including dietary changes and meal regularity to avoid hypoglycemia. The patient consented to the treatment changes and was advised to continue with an active lifestyle and regular physical and dietary monitoring. Follow-up labs were arranged for three months later to assess treatment efficacy. Patient Instructions - Take the new cholesterol medication as prescribed and report any side effects. - Continue following a healthy diet with attention on reducing carbohydrate intake. - Stay active with regular exercise. - Monitor blood sugar levels regularly and eat balanced meals to prevent dips in blood sugar. - Schedule a follow-up lab test in three months. - Keep track of any new or worsening symptoms and inform as needed. - Stay hydrated and avoid skipping meals. - Ensure routine eye checks with the eye doctor as part of diabetes management. - - Orders: Orders Lipid Panel 3 Months E11.65 - Type 2 diabetes mellitus with hyperglycemia, E78.00 - Pure hypercholesterolemia, unspecified Hemoglobin A1c 3 Months E11.65 - Type 2 diabetes mellitus with hyperglycemia Comprehensive Met. Panel 3 Months E11.65 - Type 2 diabetes mellitus with hyperglycemia Medications: New rosuvastatin 40 mg PO DAILY 30 tabs 0RF E78.00 - Pure hypercholesterolemia, unspecified Discontinued atorvastatin Discontinued Reason: Doctor's Order 80 mg PO DAILY 90 tabs 2RF E78.00 - Pure hypercholesterolemia, unspecified
[2024-06-29 17:25] VITALS: BP 124/82; PULSE 70; TEMP 522.7; TEMP 973; BMI 24.2
== END 2024-06-29 18:01 | disposition home or self-care (01) ==
LOC: HO.HMCH 17:19
PROVIDERS: PCP Internal Medicine; Visit Provider Internal Medicine
DX: Z00.00 Encounter for general adult medical examination without abnormal findings (principal); E11.65 Type 2 diabetes mellitus with hyperglycemia; J45.909 Unspecified asthma, uncomplicated; E78.00 Pure hypercholesterolemia, unspecified

== ENCOUNTER → 2024-06-29 17:18 | Outpatient (BNVA) | payer BC, SELFPAY | PROVIDERS: PCP Internal Medicine; Visit Provider Internal Medicine | DX: Z00.00 Encounter for general adult medical examination without abnormal findings (principal); E11.65 Type 2 diabetes mellitus with hyperglycemia; J45.909 Unspecified asthma, uncomplicated; E78.00 Pure hypercholesterolemia, unspecified | CPT/HCPCS: 96127 ==

== ENCOUNTER 2024-10-06 07:11 | Outpatient (REF) | payer BC, SELFPAY ==
--- OUTSIDE RECORDS SUMMARY | 2024-10-06 07:14 | XMS_ITS | Encounter Summary ---
Author Organization [facility] Address [address] [place] [id number] Phone Care Team Providers Care Digester Name Role Phone Carlos Correia MD Primary Care Provider [phone] Encounter Details Date Type Department Care Team (Late st Contact Info) Description 05/15/2017 Procedure Pass [facility] Endoscopy Admitting Dept Virtual Department [address] [place] [address] Social History Tobacco Use Types Packs/Day Years Used Date Smoking Tobacco: Never Smokeless Tobacco: Never Alcohol Use Standard Drinks/Week Comments No 0 (1 standard drink = 0.6 oz pur e alcohol) Sex and Gender Information Value Date Recorded Sex Assigned at Not on file Legal Sex Male 9:38 PM EDT Gender Identity Not on file Sexual Orientation Not on file documented as of this encounter Plan of Treatment Not on file documented as of this encounter Visit Diagnoses Not on filedocumented in this encounter Care Teams Digester Relationship Specialty Start Date End Date Carlos Correia MD [address] [place] [id number] [email or web address] PCP - General 12/04/16 documented as of this encounter Additional Source Comments The information contained in this document represents components of the legal health record. It is not the complete legal health record.[facility]
--- OUTSIDE RECORDS SUMMARY | 2024-10-06 07:14 | XMS_ITS | Patient Health Record ---
Author [facility] [place] Address [address] [facility] [place] [address] Care Team Providers Care Unisaw Operator Name Role Phone Phil CABALLERO, [facility] Primary Care Provider Steve Alonzo Unavailable [phone] Allergies Allergen (clinical drug ingredient) Drug/Non Drug Allergy documented on EMR Reaction Allergy Type Onset Date Status Shellfish (FN) Shellfish-derived Products Unknown Drug Allergy Active Reason For Referral No Information Medications Medication SIG (Take, Route, Frequency, Duration) Notes Start Date End Date Status Atorvastatin Calcium 40 MG 1 tablet Oral ly Once a day; Duration: 30 day(s) Active ProAir HFA 108 (90 Base) MCG/ACT 1 puff as needed Inhalation every 4 hrs Active Cyclobenzaprine HCl Not-Taking Immunizations Vaccine Route Administration Date Status Comme nts Influenza Unknown 11/02/2020 Administered COVID-19 Pfizer BioNTech Vaccine Unknown 02/03/2021 Administered 1st 05/03/2020 2nd 05/24/2020 Social History Tobacco Use: Social History Observation [...] W/U Status Risk Notes Problem Plantar wart ([id number]) Plantar wart (B07.0) Active confirmed Plan Of Treatment Pending Test Test Name Order Date [id number] Destruction, 1-14 12/21/2020 01200-Wzse Destruction, 03-0301/03/2021 32343-Itkl Destruction, 03-0301/24/2021 86260-Iyrt Destruction, 03-0304/28/2021 42782-Ibtw Destruction, 03-0306/23/2021 56985-Qxfy Destruction, 03-0307/14/2021 20708-Lwoh Destruction, 03-0308/04/2021 29007-Bgwf Destruction, 03-0309/05/2021 49134 - Punch Biopsy of Skin Lesion 11/18 22390 - Punch Biopsy of Skin Additional Lesions 12/05/2020 Insurance Providers Payer Name Payer Address Payer Phone Subscriber Number Group Number Insured Name Patient Relationship to Insured Coverage Start Date Coverage End Date [facility] [id number] [place] [id number] Elmo Arriola Self - patient is the insured Medical (General) History Medical History History ICD Code Lipid disorder asthma Pre Diabetes Seborrheic dermatitis Warts tendonitis Surgical History Surgery Date(Month/Year) Testicular Torsion Repair 1984
[2024-10-06 08:32] LABS: Hemoglobin A1C 164.2059 umol/L; Total Hemoglobin (HGBA1C) 3614.0795 umol/L
[2024-10-06 08:48] LABS: Alanine Aminotransferase 31 U/L (0-40); Albumin Level 4.1 g/dL (3.5-5.0); Alkaline Phosphatase 49 U/L (39-117); Anion Gap 13 (12-20); Aspartate Amino Transferase 28 U/L (5-37); Blood Urea Nitrogen 14 mg/dL (9-16); Calcium 9.0 mg/dL (8.4-10.2); Carbon Dioxide 24 mmol/L (22-29); Chloride 106 mmol/L (96-108); Cholesterol 161 mg/dL (<200); Estimated Glomerular Filt Rate > 60; HDL Cholesterol 40 mg/dL (>40); Potassium 4.5 mmol/L (3.3-5.1); Sodium 138 mmol/L (135-145); Total Protein 6.9 g/dL (6.5-8.0); Triglycerides 122 mg/dL (<150)
== END 2024-10-06 07:12 | disposition home or self-care (01) ==
LOC: HO.LAB 07:11
PROVIDERS: PCP Internal Medicine; Visit Provider Internal Medicine
DX: E11.65 Type 2 diabetes mellitus with hyperglycemia (principal); E78.00 Pure hypercholesterolemia, unspecified
CPT/HCPCS: 36415; 80053; 80061; 83036

== ENCOUNTER 2024-10-14 14:43 | Outpatient (AMB) | payer BC, SELFPAY ==
--- NOTE | 2024-10-14 14:48 | MHC.PC.OV ---
Vital Signs 10/14/24 14:49 Height 5 ft 9 in Weight 167 lb 2 oz BMI 24.7 BP 108/72 Blood Pressure Location Lt brachial Position Sitting Pulse 82 Pulse Source Pulse Oximeter Temp 97.0 F Temp Source Temporal Artery Scan Pulse Oximetry (%) 100 Oxygen Delivery Method Room Air Intake Visit Reasons: DM , Cholesterol Allergies shrimp Allergy (Unknown, Verified 10/18/24 02:27) HIVES shellfish Allergy (Unknown, Uncoded 10/18/24 02:27) anaphylaxis Medication List - Last Reconciled 10/18/24 by Igor Garcia MD albuterol sulfate 90 mcg/actuation (ProAir HFA) 1 puff inhalation Q6H PRN atorvastatin (Lipitor) 80 mg PO DAILY 90 days Tobacco use date assessed: 10/14/24 Dental Screening Dental Screen Date: 10/14/24 Did you have a dental visit in the last 12 months?: Yes Did you have a dental problem in the last 6 months where you did not have access to dental care?: No Was dental information given to patient?: Patient has dentist HPI DM , Cholesterol HPI Details Patient comes in today for his follow-up visit States that he feels okay except for increasing pain over both shoulders, which he states have been bothering him for a while now He does not recall any recent injury or trauma to his shoulders He denies any headaches or dizziness Denies any chest pains, no shortness of breath No nausea/vomiting, no abdominal pain No change in bowel habits noted Needs his Atorvastatin Rx refilled He had his follow-up labs done last week - to discuss his results [facility] Medical History (Updated 10/18/24 @ 02:51 by Igor Garcia MD) Asthma Diabetes mellitus Right tennis elbow Viral wart on finger Bilateral plantar wart Encounter for general adult medical examination with abnormal findings Lipid disorder Seborrheic dermatitis Asthma, mild Surgical History H/O colonoscopy History of torsion of testis Family History Father No problems noted. Mother No problems noted. Paternal Aunt Lung cancer Smoker Diabetes mellitus Maternal Grandfather Diabetes mellitus CVD (cardiovascular disease) Sister No problems noted. 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 1. Little interest or pleasure in doing things: not at all 2. Feeling down, depressed, or hopeless: not at all 3. Trouble falling or staying asleep, or sleeping too much: several days 4. Feeling tired or having little energy: not at all 5. Poor appetite or overeating: not at all 6. Feeling bad about yourself - or that you are a failure or have let yourself or your family down: not at all 7. Trouble concentrating on things, such as reading the newspaper or watching television: not at all 8. Moving or speaking so slowly that other people could have noticed. Or the opposite - being so fidgety or restless that you have been moving around a lot more than usual: not at all 9. Thoughts that you would be better off or of hurting yourself in some way: not at all Total score: 1 Depression Screening Interpretation: Negative Depression Screening Done: Yes 72560 - PHQ-9 Billing: Yes Source: Developed by Drs. Elmo Mensah, Karen Cooper, Danial eWber and colleagues, with an educational tena from [employer]. Thrive Questionnaire Date Thrive assessed: 06/22/24 I am a: Patient What is your living situation today?: I have a steady place to live Within the past 12 months, did the food you bought not last and you didn't have the money to get more?: Never true Within the past 12 months, did you worry whether your food would run out before you got money to buy more?: Never true Do you have trouble paying for medicines?: No Do you have trouble getting transportation to medical appointments?: No Do you have trouble paying your heating and electricity bill?: No Do you have trouble taking care of your child, family member or friend?: No Do you have trouble with day-to-day activities such as bathing, preparing meals, shopping, managing finances, etc.?: No Are you currently unemployed and looking for a job?: No Are you interested in more education?: No Please select the resources that you would like help with: None Currently or been in a relationship where the following occur: No concerns reported THRIVE Score: 0 AUDIT C Alcohol Use Questionnaire (AUDIT-C) 1. How often do you have a drink containing alcohol?: Never 3. How often do you have six or more drinks on one occasion?: Never Total Score: 0 Score Reviewed/Action Taken: Yes CHRIST-7 AMB Questionnaire CHRIST-7 Date CHRIST - 7 assessed: 06/29/24 Feeling nervous, anxious, or on edge: 0 = Not at all Not being able to stop or control worryin = Not at all Worrying too much about different things: 0 = Not at all Trouble relaxin = Not at all Being so restless that it is hard to sit still: 0 = Not at all Becoming easily annoyed or irritable: 0 = Not at all Feeling afraid as if something awful might happen: 0 = Not at all Total CHRIST-7 score (0-4 normal; 5-9 mild; 10-14 moderate; 15-21 severe): 0 Source: Developed by Drs. Elmo Mensah, Karen Cooper, Danial Weber and colleagues, with an educational tena from [employer]. Review of Systems Const Denies chills, Denies fatigue, Denies fever(s) and Denies headache(s) ENT Denies dysphagia, Denies dizziness, Denies otalgia, Denies headache(s), Denies neck pain, Denies odynophagia and Denies sore throat Card Denies chest pain, Denies palpitations and Denies dyspnea Resp Denies chest congestion, Denies cough and Denies dyspnea GI Denies abdominal pain, Denies constipation, Denies dysphagia, Denies heartburn, Denies diarrhea, Denies nausea, Denies odynophagia and Denies vomiting Denies difficulty urinating, Denies dysuria, Denies nocturia and Denies urinary frequency Musc Denies back pain, Reports arthralgias (in both shoulders, increasing lately) and Denies neck pain Skin/Breast Denies rash Neuro Denies dizziness and Denies headache(s) Endo Denies fatigue and Denies palpitations Physical exam (Primary Care) Vital Signs: Last Vital Signs Temp 97.0 F 10/14/24 14:49 Pulse 82 10/14/24 14:49 BP 108/72 10/14/24 14:49 Pulse Ox 100 10/14/24 14:49 Oxygen Delivery Method Room Air 10/14/24 14:49 BMI result Body Mass Index 24.7 Tobacco/Smoking Status: Tobacco use Status Tobacco use date assessed 10/14/24 10/14/24 14:53 Patient Tobacco Use Status Never used Tobacco 10/14/24 14:53 e-Cigarette/Vaping Use Never Used 10/14/24 14:53 PHQ-9: PHQ-9 Score PHQ-9: Total score 1 10/14/24 15:40 Depression Screening Interpretation: Negative Thrive Assessment: Date of Thrive Assessment Date Thrive assessed 06/22/24 10/14/24 14:53 Currently or been in a relationship where the following occur: No concerns reported Const General: no acute distress and alert HENMT Ears: TM's normal bilaterally and EAC's normal Throat: Yes posterior oropharynx normal and Yes tonsils normal (no TP congestion) Neck Neck: Yes supple and No lymphadenopathy Thyroid: Thyroid normal Resp Auscultation: clear to auscultation bilaterally, no rales and no wheezes Cardio Rate: regular rate Rhythm: regular rhythm Heart sounds: no murmurs GI Palpation (GI): Soft to palpation and nontender Auscultation: normal bowel sounds General: Yes no CVA tenderness Back/Spine/Pelvis Back: no CVA tenderness Thoracic/Lumbar Spine: No lumbar spinal tenderness Skin Rashes: no rashes Extrem General: Yes no clubbing, cyanosis or edema Right upper extremity: shoulder/upper arm Details: tenderness; no swelling Left upper extremity: shoulder/upper arm Details: tenderness; no swelling Results Reviewed Results Reviewed: Laboratory Tests 10/06/24 07:26 Sodium 138 Potassium 4.5 Creatinine 0.80 Estimated GFR > 60 Random Glucose 102 Hemoglobin A1c % 6.3 H Calcium 9.0 AST 28 ALT 31 Triglycerides 122 Cholesterol 161 LDL Cholesterol, Calc 97 HDL Cholesterol 40 L Coding Level of Care Code Est Pt Level 4 (02060) Diagnoses Bilateral shoulder pain, unspecified chronicity M25.511; M25.512 Chronicity: unspecified Hypercholesterolemia E78.00 Type 2 diabetes mellitus without complication, without long-term current use of insulin E11.9 Diabetes mellitus type: type 2 Diabetes mellitus director of neurology insulin use: without residential use Diabetes mellitus complication status: without complication Mild intermittent asthma without complication J45.20 Asthma severity: mild Asthma persistence: intermittent Asthma complication type: uncomplicated Additional Codes PHQ-9 - 28010 - PHQ-9 Billing: Yes ([id number]) Assessment & Plan Assessment & Plan (1) Bilateral shoulder pain: Code(s): M25.511 - Pain in right shoulder; M25.512 - Pain in left shoulder Category: Medical Qualifiers: Chronicity: unspecified Qualified Code(s): M25.511 - Pain in right shoulder; M25.512 - Pain in left shoulder Plan: Suspect bursitis/tendinitis vs. OA of the shoulders Will send patient for x-rays of both shoulders for further evaluation (2) Hypercholesterolemia: Code(s): E78.00 - Pure hypercholesterolemia, unspecified Category: Medical Plan: Results of his labs done last week reviewed and discussed with patient Reinforced low cholesterol diet Continue Atorvastatin 80 mg QD Will have patient recheck her labs and fasting lipids in 4 months for follow up (3) Diabetes mellitus: Code(s): E11.9 - Type 2 diabetes mellitus without complications Category: Medical Qualifiers: Diabetes mellitus type: type 2 Diabetes mellitus residential insulin use: without director of neurology use Diabetes mellitus complication status: without complication Qualified Code(s): E11.9 - Type 2 diabetes mellitus without complications Plan: His HgbA1c was at 6.3% on his labs done last week - goal is at least <7.0% Reinforced diabetic diet Will recheck his FBS and HgbA1c in 4 months for follow up (4) Asthma: Code(s): J45.909 - Unspecified asthma, uncomplicated Category: Medical Qualifiers: Asthma severity: mild Asthma persistence: intermittent Asthma complication type: uncomplicated Qualified Code(s): J45.20 - Mild intermittent asthma, uncomplicated Plan: Continue Albuterol HFA 1 to 2 inhalations Q 6 hours PRN Plan Follow up with PCP in 4 months Orders: Orders XR shoulder LT min 2V 10/15/24 M25.512 - Pain in left shoulder Hemoglobin A1c 4 Months E11.9 - Type 2 diabetes mellitus without complications Microalbumin, Random (w Creat) 4 Months E11.9 - Type 2 diabetes mellitus without complications XR shoulder RT min 2V 10/15/24 M25.511 - Pain in right shoulder Complete Blood Count Auto Diff 4 Months D64.9 - Anemia, unspecified Comprehensive [facility]. Panel Fast 4 Months E78.00 - Pure hypercholesterolemia, unspecified Lipid Panel 4 Months E78.00 - Pure hypercholesterolemia, unspecified Medications: New atorvastatin (Lipitor) 80 mg PO DAILY 90 tabs 1RF 90 days
[2024-10-14 14:49] VITALS: BP 108/72; PULSE 82; TEMP 36.1; O2SAT 100; BMI 24.7
--- OUTSIDE RECORDS SUMMARY | 2024-10-14 16:06 | XMS_ITS | Encounter Summary ---
Author Organization [facility] Address [address] [place] [address] Phone Care Team Providers Care Fur Blowing Machine Operator Name Role Phone Carlos Correia MD Primary Care Provider [phone] Encounter Details Date Type Department Care Team (Late st Contact Info) Description 05/15/2017 Procedure Pass [facility] Endoscopy Admitting Dept Virtual Department [address] [place] [address] Social History Tobacco Use Types Packs/Day Years [...] on filedocumented in this encounter Care Teams Fur Blowing Machine Operator Relationship Specialty Start Date End Date Carlos Correia MD [address] [place] [id number] [email or web address] PCP - General 12/04/16 documented as of this encounter Additional Source Comments The information contained in this document represents components of the legal health record. It is not the complete legal health record.[facility]
--- OUTSIDE RECORDS SUMMARY | 2024-10-14 16:06 | XMS_ITS | Patient Health Record ---
[facility] [place] Address [address] [place] [address] Care Team Providers Care Rope Machine Setter Name Role Phone Phil CABALL[facility], [facility] Primary Care Provider Steve Alonzo Unavailable [phone] Allergies Allergen (clinical drug ingredient) Drug/Non Drug [...] W/U Status Risk Notes Problem Plantar wart ([id number]) Plantar wart (B07.0) Active confirmed Plan Of Treatment Pending Test Test Name Order Date [id number]-Gnqo Destruction, 1-14 12/21/2020 [id number]-Kdqw Destruction, 03-0301/03/2021 45656-Hkru Destruction, 03-0301/24/2021 27775-Qune Destruction, 03-0304/28/2021 60929-Qkym Destruction, 03-0306/23/2021 48382-Vfld Destruction, 03-0307/14/2021 91635-Buik Destruction, 03-0308/04/2021 29216-Vubj Destruction, 03-0309/05/2021 97303 - Punch Biopsy of Skin Lesion 11/18 00354 - Punch Biopsy of Skin Additional Lesions 12/05/2020 Insurance Providers Payer Name Payer Address Payer Phone Subscriber Number Group Number Insured Name Patient Relationship to Insured Coverage Start Date Coverage End Date [facility] [address] [place] [phone] [id number] Elmo Arriola Self - patient is the insured Medical (General) History Medical History History ICD Code Lipid disorder asthma Pre Diabetes Seborrheic dermatitis Warts tendonitis Surgical History Surgery Date(Month/Year) Testicular Torsion Repair 1984
--- OUTSIDE RECORDS SUMMARY | 2024-10-14 16:06 | XMS_ITS | Clinical Summary ---
Author Organization [facility] Address [address] [place] [address] Phone Care Team Providers Care Medical Billing Specialist Name Role Phone Carlos Correia MD Primary Care Provider Allergies Active Allergy Reactions Criticality Noted Date Comments Crab Hives 05/08/2017 Allergy to lobster Shrimp Hives 05/08/2017 Medications ibuprofen (ADVIL,MOTRIN) 200 MG tabletIndicatio ns:pain Take 200 mg by mouth as needed for pain (specific location in comments). Indications: Pain Active albuterol 90 mcg/actuation inhaler Inhale 2 puffs into the lungs as needed for wheezing. Active Social History Tobacco Use Types Packs/Day Years Used Date Smoking Tobacco: Never Smokeless Tobacco: Never Alcohol Use Standard Drinks/Week Comments No 0 (1 standard drink = 0.6 oz pur e alcohol) Education Answer Date Recorded Are you interested in more education? Not on herve e 06/15/2022 Are you concerned about learning? Not on file 06/15/2022 No 06/15/2022 No 06/15/2022 Digital Access Answer Date Recorded No 07/14/2022 No 07/14/2022 No 07/14/2022 Reliable internet access at home? Not on file 07/14/2022 Device with a working camera? Not on file Sex and Gender Information Value Date Recorded Sex Assigned at Not on file Legal Sex Male 9:38 PM EDT Gender Identity Not on file Sexual Orientation Not on file Last Filed Vital Signs Vital Sign Reading Time Taken Comments Blood Pressure 108/68 05/15/2017 8:28 AM EDT Pulse 74 05/15/2017 8:14 AM EDT Temperature - - Respiratory Rate 16 05/15/2017 8:28 AM EDT Oxygen Saturation 97% 05/15/2017 8:28 AM EDT Inhaled Oxygen Concentration - - Weight 78 kg (172 lb) 05/08/2017 9:00 AM EDT Height 175.3 cm (5' 9 ) 05/08/2017 9:00 AM EDT Body Mass Index 25.4 05/08/2017 9:00 AM EDT Plan of Treatment Health Maintenance Due Date Last Done Comments DEPRESSION SCREENING 1979 HEPATITIS C SCREENING 1985 HIV ONE-TIME SCREENING (18-6 5 YEARS) 1985 COLOGUARD 2012 FIT TEST 2012 FOBT 2012 SIGMOIDOSCOPY 2012 VIRTUAL COLONOSCOPY 2012 PNEUMOCOCCAL VACCINES (50+ years) (1 of 1 - PCV) 2017 ZOSTER VACCINES (1 of 2) 2017 LIPID PANEL 09/18/2021 09/18/2016 COVID-19 VACCINE (3 - 2023-2 5 season) 2023 05/24/2020, 05/03/2020 COLONOSCOPY 05/16/2027 05/15/2017 COLORECTAL CANCER SCREENING 05/16/2027 Adult Td,Tdap Booster 11/23/2027 11/22/2017 SMOKING STATUS SCREENING (On ce After 26 Yrs) Completed 05/15/2017 HEPATITIS A VACCINES Aged Out No long er eligible based on patient's age to complete this topic HIB VACCINES Aged Out No longer eligi ble based on patient's age to complete this topic MENINGOCOCCAL VACCINES (ACWY) Aged Out No longer eligible based on patient's age to complete this topic MENINGOCOCCAL VACCINES (B) Aged Out N o longer eligible based on patient's age to complete this topic Medical Devices Not on file Procedures Procedure Name Priority Date/Time Associated Diagnosis Comments ENDOSCOPY, COLON 05/15/2017 7:12 AM EDT from Last 3 Months or Most Recently Relevant to Health Maintenance Results * ENDOSCOPY, COLON (05/15/2017 7:12 AM EDT) Narrative Transcriptions Julissa Irizarry MD - 05/15/2017 7:12 AM EDT Patient Name: Elmo De Jesus MD:: Julissa IRIZARRY MD Procedure Date: 05/15/2017 7:12 AM Date of : 1965 Age: 52 Admit Type: Outpatient Gender: Male Room: [place] [address] Referring MD: CARLOS CORREIA MD Exam Type: Colonoscopy Indications: Ronceverte-rectal cancer screening Medications: Midazolam 4 mg IV, Fentanyl 50 micrograms IV Procedure: Informed consent was obtained from the patient after discussion of the indications, limitations,alternatives, benefits, and risks of the procedure. Risksspecifically discussed include but are not limited to bleeding, perforation, or the need for emergent surgery. Throughout the procedure, the patient's blood pressure, pulse, end-tidal CO2, and oxygen saturations were monitored continuously. The Olympus pediatric variable colonoscope [id number]-[id number] was introduced through the anus and advanced to thececum, identified by seeing the appendiceal orifice andileocecal valve. The exam was performed without difficulty, waswell tolerated by the patient, and the quality of the bowel prep was good. Complications: There were no immediate complications. There were no specimens. Blood loss - 0 Findings: Digital rectal exam was normal. The entire colon was normal in appearance, i.e., there were no polyps, tumors, diverticula, vascular malformations, or areas of inflammation. Impression: - Normal colonoscopy. Recommendation: - Repeat colonoscopy in 10 years. (The patient's father has had polyps removed, and if the patient can obtainhis father's pathology report, and the polyps were of significant size, repeat colonoscopy in 5 years may be reasonable) Julissa IRIZARRY MD 05/15/2017 8:14:55 AM This report has been signed electronically. Number of Addenda: 0 Note Initiated On: 05/15/2017 7:12 AM Procedure Code(s): --- Professional --- 73507, Colonoscopy, flexible; diagnostic, including collection of specimen(s) by brushing or washing, when performed (separateprocedure) --- Technical --- 23012, Colonoscopy, flexible; diagnostic, including collection of specimen(s) by brushing or washing, when performed (separateprocedure) CPT copyright 2016 [employer]. All rights reserved. The codes documented in this report are preliminary and upon certified coder reviewmay be revised to meet current compliance requirements. [address] [place] [address] Carlos Correia MD GI PROCEDURE ORDERABLES Mala l Result from Last 3 Months or Most Recently Relevant to Health Maintenance Insurance [facility] POS EPO [place] [email or web address] [facility] [place]PO [facility]PO [facility]PO [facility] EPO [facility] EPO Care Teams Medical Billing Specialist Relationship Specialty Start Date End Date Carlos Correia MD [address] [place] [phone] [email or web address] PCP - General 12/04/16 Additional Source Comments The information contained in this document represents components of the legal health record. It is not the complete legal health record.[facility]
== END 2024-10-14 15:48 | disposition home or self-care (01) ==
LOC: HO.HMCH 14:44
PROVIDERS: PCP Internal Medicine; Visit Provider Internal Medicine
DX: M25.511 Pain in right shoulder (principal); M25.512 Pain in left shoulder; E78.00 Pure hypercholesterolemia, unspecified; E11.9 Type 2 diabetes mellitus without complications; J45.20 Mild intermittent asthma, uncomplicated

== ENCOUNTER → 2024-10-14 14:43 | Outpatient (BNVA) | payer BC, SELFPAY | PROVIDERS: PCP Internal Medicine; Visit Provider Internal Medicine | DX: E11.9 Type 2 diabetes mellitus without complications (principal); M25.511 Pain in right shoulder; M25.512 Pain in left shoulder; E78.00 Pure hypercholesterolemia, unspecified; J45.20 Mild intermittent asthma, uncomplicated; D64.9 Anemia, unspecified | CPT/HCPCS: 96127 ==

== ENCOUNTER 2024-10-15 07:50 | Outpatient (REF) | payer BC, SELFPAY ==
--- NOTE | ~2024-10-15 | XR_ITS ---
EXAMINATION: XR SHOULDER, RIGHT CLINICAL INFORMATION: M25.511 - Pain in right shoulder COMPARISON: None available. TECHNIQUE: AP external rotation, Grashey, scapular Y, and axillary views of the right shoulder. FINDINGS: No acute cortical disruption or malalignment. No lytic or blastic lesions. No soft tissue calcifications. No metallic or radiopaque foreign body. XR/XR shoulder RT min 2V IMPRESSION: Normal x-ray right shoulder. Electronically signed by: Fab Montes De Oca MD 10/15/2024 08:09 AM EDT
--- NOTE | ~2024-10-15 | XR_ITS ---
EXAMINATION: XR SHOULDER, LEFT CLINICAL INFORMATION: M25.512 - Pain in left shoulder COMPARISON: None available. TECHNIQUE: AP external rotation, Grashey, scapular Y, and axillary views of the left shoulder. FINDINGS: Limited Grashey projection. No acute cortical disruption or malalignment. No lytic or blastic lesions. No soft tissue calcifications. No metallic or radiopaque foreign body. XR/XR shoulder LT min 2V IMPRESSION: Normal x-ray, left shoulder. Electronically signed by: Fab Montes De Oca MD 10/15/2024 08:08 AM EDT
--- OUTSIDE RECORDS SUMMARY | 2024-10-15 07:55 | XMS_ITS | Clinical Summary ---
Author Organization [facility] Address [address] [place] [address] Phone Care Team Providers Care Hand Violin Maker Name Role Phone Carlos Correia MD Primary [...] 52 Admit Type: Outpatient Gender: Male Room: [place] [address] Referring MD: CARLOS CORREIA MD Exam Type: Colonoscopy Indications: Willis-rectal cancer screening Medications: Midazolam 4 mg IV, [...] 7:12 AM Procedure Code(s): --- Professional --- 14850, Colonoscopy, flexible; diagnostic, including collection of specimen(s) by brushing or washing, when performed (separateprocedure) --- Technical --- 75292, Colonoscopy, flexible; diagnostic, including collection of specimen(s) by brushing or washing, when performed (separateprocedure) CPT copyright 2016 [employer]. All rights reserved. The codes documented in this report are preliminary and upon middle school football coach reviewmay be revised to meet current compliance requirements. [address] [place] [address] Carlos Correia MD GI PROCEDURE ORDERABLES Mala l Result from Last 3 Months or Most Recently Relevant to Health Maintenance Insurance [facility] POS EPO [place] [employer] [facility] POS EPO [facility] POS EPO [facility] POS EPO [facility] POS EPO [facility]PO [facility] POS E[facility] E[facility] Care Teams Hand Violin Maker Relationship Specialty Start Date End Date Carlos Correia MD [address] [place] [phone] [email or web address] PCP - General 12/04/16 Additional Source Comments The information contained in this document represents components of the legal health record. It is not the complete legal health record.[facility]
--- OUTSIDE RECORDS SUMMARY | 2024-10-15 07:55 | XMS_ITS | Encounter Summary ---
Author Organization [facility] Address [address] [place] [phone] Phone Care Team Providers Care Harbour Master Name Role Phone Carlos Correia MD Primary Care Provider [phone]- [phone] Encounter Details Date Type Department Care Team (Late st Contact Info) Description 05/15/2017 Procedure Pass [facility] Endoscopy Admitting Dept Virtual Department [address] [place] [address] Social History Tobacco Use Types Packs/Day Years [...] on filedocumented in this encounter Care Teams Harbour Master Relationship Specialty Start Date End Date Carlos Correia MD [address] [place] [phone] [email or web address] PCP - General 12/04/16 documented as of this encounter Additional Source Comments The information contained in this document represents components of the legal health record. It is not the complete legal health record.[facility]
--- OUTSIDE RECORDS SUMMARY | 2024-10-15 07:55 | XMS_ITS | Patient Health Record ---
Author Organization [facility] [place] Address [address] [place] [address] Care Team Providers Care Wholesale Buyer Name Role Phone Phil CABALLERO, [facility] Primary Care Provider Steve Alonzo Unavailable [phone] Allergies Allergen (clinical drug ingredient) Drug/Non Drug [...] W/U Status Risk Notes Problem Plantar wart (87180099) Plantar wart (B07.0) Active confirmed Plan Of Treatment Pending Test Test Name Order Date 78381-Jymy Destruction, 1-14 12/21/2020 95754-Mjpm Destruction, 03-0301/03/2021 52221-Ciwh Destruction, 03-0301/24/2021 63484-Gzxr Destruction, 03-0304/28/2021 86366-Abeo Destruction, 03-0306/23/2021 12215-Lymw Destruction, 03-0307/14/2021 58242-Dada Destruction, 03-0308/04/2021 66360-Dhri Destruction, 03-0309/05/2021 56220 - Punch Biopsy of Skin Lesion 11/18 29556 - Punch Biopsy of Skin Additional Lesions 12/05/2020 Insurance Providers Payer Name Payer Address Payer Phone Subscriber Number Group Number Insured Name Patient Relationship to Insured Coverage Start Date Coverage End Date [facility] [address] [place] [phone] [id number] Elmo Arriola Self - patient is the insured Medical (General) History Medical History History ICD Code Lipid disorder asthma Pre Diabetes Seborrheic dermatitis Warts tendonitis Surgical History Surgery Date(Month/Year) Testicular Torsion Repair 1984
== END 2024-10-15 07:51 | disposition home or self-care (01) ==
LOC: HO.XRAY 07:50
PROVIDERS: PCP Internal Medicine; Visit Provider Internal Medicine
DX: M25.511 Pain in right shoulder (principal); M25.512 Pain in left shoulder
CPT/HCPCS: 73030

== ENCOUNTER → 2024-10-15 07:54 | Outpatient (BNV) | payer BC, SELFPAY | PROVIDERS: PCP Internal Medicine; Visit Provider Radiology Diagnostic Radiology | DX: M25.511 Pain in right shoulder (principal); M25.512 Pain in left shoulder | CPT/HCPCS: 73030 ==

== ENCOUNTER 2025-01-27 07:34 | Outpatient (REF) | payer BC, SELFPAY ==
--- OUTSIDE RECORDS SUMMARY | 2025-01-27 07:51 | XMS_ITS | Clinical Summary ---
Author Organization [facility] Address [address] [place] [address] Phone Care Team Providers Care Employment Supervisor Name Role Phone Carlos Correia MD Primary Care Provider [phone] Allergies Active Allergy Reactions Criticality Noted Date [...] HEPATITIS C SCREENING 1985 HIV ONE-TIME SCREENING (18-65 YEARS) 1985 COLOGUARD 2012 FIT TEST 2012 FOBT 2012 SIGMOIDOSCOPY 2012 VIRTUAL COLONOSCOPY 2012 PNEUMOCOCCAL VACCINES (50+ years) (1 of 1 - PCV) 2017 ZOSTER VACCINES (1 of 2) 2017 LIPID PANEL 09/18/2021 09/18/2016 INFLUENZA VACCINE (#1) 2024 , 01/24/2019, 12/23/2018, Additional history exists COVID-19 VACCINE (3 - season) 2024 05/24/2020, 05/03/2020 COLONOSCOPY 05/16/2027 05/15/2017 COLORECTAL CANCER SCREENING 05/16/2027 Adult Td,Tdap Booster 11/23/2027 11/22/2017 RSV VACCINE (1 - 1-dose 75+ series) 2042 SMOKING STATUS SCREENING (Once After 26 Yrs) Completed 05/15/2017 HEPATITIS A [...] 52 Admit Type: Outpatient Gender: Male Room: [place] [address] Referring MD: CARLOS CORREIA MD Exam Type: Colonoscopy Indications: [place]-rectal cancer screening Medications: Midazolam 4 mg IV, [...] colonoscopy in 5 years may be reasonable) A SU IRIZARRY MD 05/15/2017 8:14:55 AM This report has been signed electronically. Number of Addenda: 0 Note Initiated On: 05/15/2017 7:12 AM Procedure Code(s): --- Professional --- 38546, Colonoscopy, flexible; diagnostic, including collection of specimen(s) by brushing or washing, when performed (separateprocedure) --- Technical --- 81403, Colonoscopy, flexible; diagnostic, including collection of specimen(s) by brushing or washing, when performed (separateprocedure) CPT copyright 2016 [employer]. All rights reserved. The codes documented in this report are preliminary and upon cold food packer reviewmay be revised to meet current compliance requirements. [address] [place] [address] Carlos Correia MD GI PROCEDURE ORDERABLES Mala l Result from Last 3 Months or Most Recently Relevant [id number] [facility] POS EPO [facility] POS EPO [facility] POS [facility]PO [facility] POS EPO [facility] POS EPO Care Teams Employment Supervisor Relationship Specialty Start Date End Date Carlos Correia MD [address] [place] [id number] [email or web address] PCP - General 12/04/16 Additional Source Comments The information contained in this document represents components of the legal health record. It is not the complete legal health record.[facility]
--- OUTSIDE RECORDS SUMMARY | 2025-01-27 07:51 | XMS_ITS | Encounter Summary ---
Author Organization [facility] Address [address] [place] [address] Phone Care Team Providers Care Production Honing Machine Operator Name Role Phone Carlos Correia MD Primary Care Provider [phone] Encounter Details Date Type Department Care Team (Late st Contact Info) Description 05/15/2017 Procedure Pass [facility] Endoscopy Admitting Dept Virtual Department [address] [place] [address] Social History Tobacco Use Types Packs/Day Years [...] on filedocumented in this encounter Care Teams Production Honing Machine Operator Relationship Specialty Start Date End Date Carlos Correia MD [address] [place] [phone] [email or web address] PCP - General 12/04/16 documented as of this encounter Additional Source Comments The information contained in this document represents components of the legal health record. It is not the complete legal health record.[facility]
[2025-01-27 09:11] LABS: MANUAL DIFF FLAG NO
[2025-01-27 09:22] LABS: Hematocrit 42.0 % (42.0-52.0); Hemoglobin 14.3 g/dl (14.0-18.0); Imm Gran Abs Auto 0.01 X10*3/uL (0.00-0.03); Imm Gran Pct Auto 0.2 % (0.0-0.4); Lymphocytes Absolute Auto 1.1 X10*3/uL (1.2-4.9); Mean Corpuscular HGB Conc 34.0 g/dl (31.0-36.0); Mean Corpuscular Hemoglobin 29.1 pg (27.0-33.0); Mean Corpuscular Volume 85.4 fL (80.0-98.0); NRBC Abs Auto 0.000 X10*3/uL (0.0-0.012); NRBC Pct Auto 0.0 /100WBC (0.0-0.2); Platelet Count 264 X10*3/uL (160-400); Red Blood Count 4.92 X10*6/uL (4.60-5.80); White Blood Count 4.6 X10*3/uL (4.8-10.8)
[2025-01-27 09:59] LABS: Alanine Aminotransferase 39 U/L (0-40); Albumin Level 4.4 g/dL (3.5-5.0); Alkaline Phosphatase 57 U/L (39-117); Anion Gap 11 (12-20); Aspartate Amino Transferase 29 U/L (5-37); Blood Urea Nitrogen 12 mg/dL (9-16); Calcium 9.3 mg/dL (8.4-10.2); Carbon Dioxide 28 mmol/L (22-29); Chloride 105 mmol/L (96-108); Cholesterol 173 mg/dL (<200); Estimated Glomerular Filt Rate > 60; HDL Cholesterol 47 mg/dL (>40); Potassium 4.4 mmol/L (3.3-5.1); Sodium 140 mmol/L (135-145); Total Protein 7.2 g/dL (6.5-8.0); Triglycerides 115 mg/dL (<150)
[2025-01-27 11:33] LABS: Microalbum/Creatinine Ratio Ur 31.9 ug/mg cr (<30)
== END 2025-01-27 07:35 ==
LOC: HO.LAB 07:34
PROVIDERS: PCP Internal Medicine; Visit Provider Internal Medicine
DX: E11.9 Type 2 diabetes mellitus without complications (principal); E78.00 Pure hypercholesterolemia, unspecified; D64.9 Anemia, unspecified
CPT/HCPCS: 36415; 80053; 80061; 82043; 82570; 83036; 85025

== ENCOUNTER 2025-02-04 14:47 | Outpatient (REF) | payer BC, SELFPAY ==
--- NOTE | ~2025-02-04 | US_ITS ---
EXAMINATION: US SCROTUM HISTORY: N50.811 - Right testicular pain. COMPARISON: There are no prior studies available for comparison. FINDINGS: Real-time grayscale ultrasound imaging of the scrotum was performed. RIGHT TESTICLE: The right testis measures 4.0 x 1.5 x 2.7 cm and demonstrates normal homogeneous echotexture. No masses are seen. The right testis demonstrates normal color and spectral Doppler flow. RIGHT EPIDIDYMIS: Normal in size, shape, and vascularity. LEFT TESTICLE: The left testis measures 3.9 x 1.8 x 2.6 cm and demonstrates normal homogeneous echotexture. No masses are seen. The left testis demonstrates normal color and spectral Doppler flow. LEFT EPIDIDYMIS: Normal in size, shape, and vascularity. There is an epididymal head cyst measuring 1.1 cm in diameter. VARICOCELE: None. HYDROCELE: No significant hydrocele is seen. OTHER COMMENTS: None. US/US scrotum IMPRESSION: 1.1 cm left epididymal head cyst. Otherwise unremarkable scrotal ultrasound. Electronically signed by: Elmo Rhodes MD 02/04/2025 03:26 PM [facility]
--- OUTSIDE RECORDS SUMMARY | 2025-02-04 18:54 | XMS_ITS | Encounter Summary ---
Author Organization [facility] Address [address] [place] [address] Phone Care Team Providers Care Shift Supervisor Film Processing Name Role Phone Carlos Correia MD Primary Care Provider [phone] Encounter Details Date Type Department Care Team (Late st Contact Info) Description 05/15/2017 Procedure Pass [facility] Endoscopy Admitting Dept Virtual Department [address] [place] [address] Social History Tobacco Use Types Packs/Day Years [...] on filedocumented in this encounter Care Teams Shift Supervisor Film Processing Relationship Specialty Start Date End Date Carlos Correia MD [address] [place] [address] [email or web address] PCP - General 12/04/16 documented as of this encounter Additional Source Comments The information contained in this document represents components of the legal health record. It is not the complete legal health record.[facility]
--- OUTSIDE RECORDS SUMMARY | 2025-02-04 18:54 | XMS_ITS | Patient Health Record ---
Author Organization [facility] [place] Address [address] [place] [address] Care Team Providers Care Family Medicine Physician Assistant Name Role Phone Phil CABALLERO, [facility] Primary Care Provider Steve Alonzo Unavailable [phone] Allergies Allergen (clinical drug ingredient) Drug/Non Drug [...] W/U Status Risk Notes Problem Plantar wart (43469105) Plantar wart (B07.0) Active confirmed Plan Of Treatment Pending Test Test Name Order Date 34863-Djmm Destruction, 1-14 12/21/2020 61206-Djen Destruction, 03-0301/03/2021 38491-Wrfy Destruction, 03-0301/24/2021 43435-Poym Destruction, 03-0304/28/2021 30151-Pjty Destruction, 03-0306/23/2021 83099-Oelr Destruction, 03-0307/14/2021 64309-Sfse Destruction, 03-0308/04/2021 87216-Chmn Destruction, 03-0309/05/2021 18609 - Punch Biopsy of Skin Lesion 11/18 96034 - Punch Biopsy of Skin Additional Lesions 12/05/2020 Insurance Providers Payer Name Payer Address Payer Phone Subscriber Number Group Number Insured Name Patient Relationship to Insured Coverage Start Date Coverage End Date [facility] [address] [place] [phone] [id number] Elmo Arriola Self - patient is the insured Medical (General) History Medical History History ICD Code Lipid disorder asthma Pre Diabetes Seborrheic dermatitis Warts tendonitis Surgical History Surgery Date(Month/Year) Testicular Torsion Repair 1984
--- OUTSIDE RECORDS SUMMARY | 2025-02-04 18:54 | XMS_ITS | Clinical Summary ---
Author Organization [facility] Address [address] [place] [address] Phone Care Team Providers Care Engine Specialist Name Role Phone Carlos Correia MD [...] 52 Admit Type: Outpatient Gender: Male Room: [place] [address] Referring MD: CARLOS CORREIA MD Exam Type: Colonoscopy Indications: [place]-rectal cancer screening Medications: Midazolam 4 mg IV, [...] 7:12 AM Procedure Code(s): --- Professional --- 80025, Colonoscopy, flexible; diagnostic, including collection of specimen(s) by brushing or washing, when performed (separateprocedure) --- Technical --- 33864, Colonoscopy, flexible; diagnostic, including collection of specimen(s) by brushing or washing, when performed (separateprocedure) CPT copyright 2016 [employer]. All rights reserved. The codes documented in this report are preliminary and upon field director reviewmay be revised to meet current compliance requirements. [address] [place] [address] Carlos Correia MD GI PROCEDURE ORDERABLES Mala l Result from Last 3 Months or Most Recently [place] [id number] [facility] POS [facility] EPO [facility] POS [facility]PO [facility] EPO [facility] POS EPO [facility] POS EPO [facility] POS EPO Care Teams Engine Specialist Relationship Specialty Start Date End Date Carlos Correia MD [address] [place] [phone] [email or web address] PCP - General 12/04/16 Additional Source Comments The information contained in this document represents components of the legal health record. It is not the complete legal health record.[facility]
== END 2025-02-04 14:48 | disposition home or self-care (01) ==
LOC: HO.US 14:47
PROVIDERS: PCP Internal Medicine; Visit Provider Internal Medicine
DX: N50.811 Right testicular pain (principal)
CPT/HCPCS: 76870

== ENCOUNTER → 2025-02-04 14:49 | Outpatient (BNV) | payer BC, SELFPAY | PROVIDERS: PCP Internal Medicine; Visit Provider Radiology Diagnostic Radiology | DX: N50.3 Cyst of epididymis (principal) | CPT/HCPCS: 76870 ==

== ENCOUNTER 2025-02-09 12:50 | Outpatient (AMB) | payer BC, SELFPAY ==
--- NOTE | 2025-02-09 13:10 | MHC.OFFVIS ---
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 Patient was referred by his PCP and was sent to PT, he noted that he is currently in physical therapy for his shoulder. Patient states that for the past 8 months he has had right shoulder pain that radiates into the bicep. He has tried ibuprofen which gives him mild relief. He states that his range of motion has improved somewhat with the physical therapy. Know: No HX:No Allergies shrimp Allergy (Unknown, Verified 10/18/24 02:27) HIVES shellfish Allergy (Unknown, Uncoded 10/18/24 02:27) anaphylaxis Medication List - Last Reconciled 02/09/25 by Rommel Hdz MD albuterol sulfate 90 mcg/actuation (ProAir HFA) 1 puff inhalation Q6H PRN atorvastatin (Lipitor) 80 mg PO DAILY 90 days PFS Medical History (Updated 12/18/24 @ 13:57 by Ida Ramey MD) Asthma Diabetes mellitus Right tennis elbow Viral wart on finger Bilateral plantar wart Encounter for general adult medical examination with abnormal findings Lipid disorder Seborrheic dermatitis Asthma, mild Surgical History H/O colonoscopy History of torsion of testis Family History Father No problems noted. Mother No problems noted. Paternal Aunt Lung cancer Smoker Diabetes mellitus Maternal Grandfather Diabetes mellitus CVD (cardiovascular disease) Sister No problems noted. 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 Cognitive needs: No Hearing needs: No Vision needs: No Physical Exam Vital Signs: BMI result Body Mass Index 24.4 Extrem Other: Right shoulder examination shows slightly decreased range of motion when compared to his left shoulder, 4+ out of 5 strength with supraspinatus testing, positive impingement signs, no instability Results Reviewed Results Reviewed: X-rays of the patient's right shoulder show moderate to severe acromioclavicular joint narrowing, a type 2 acromion, no acute bony abnormalities Assessment & Plan Assessment & Plan (1) Right shoulder pain: Code(s): M25.511 - Pain in right shoulder Category: Medical Plan Mr. Arriola presents with right shoulder pain and weakness due to impingement syndrome and possible rotator cuff injury. I had a lengthy discussion with the patient regarding the treatment options. I did give him a prescription for a Medrol Dosepak. The patient will continue going to formal physical therapy for now. If he does not get significant relief from the therapy I will order an MRI of his right shoulder to further evaluate the status of his rotator cuff tendons. Feel free to call me at any time should questions regarding his orthopedic management arise. Thank you very much for asking me to see this very friendly gentleman. I spent 21 minutes in reviewing the patient's records and imaging studies, seeing the patient and documenting in the medical record. Medications: New methylprednisolone (Medrol (Ruddy)) PO PER PKG DIR 21 ea 0RF Coding Level of Care Code New Pt Level 3 (06078) Add On Problem Visit Only Diagnoses Right shoulder pain M25.511
[2025-02-09 13:14] VITALS: BMI 24.4
--- OUTSIDE RECORDS SUMMARY | 2025-02-09 13:54 | XMS_ITS | Encounter Summary ---
Author Organization [facility] Address [address] [place] [address] Phone Care Team Providers Care Corner Brace Block Machine Operator Name Role Phone Carlos Correia MD Primary Care Provider [phone] Encounter Details Date Type Department Care Team (Late st Contact Info) Description 05/15/2017 Procedure Pass [facility] Endoscopy Admitting Dept Virtual Department [address] [place] [address] Social History Tobacco Use Types Packs/Day Years [...] on filedocumented in this encounter Care Teams Corner Brace Block Machine Operator Relationship Specialty Start Date End Date Carlos Correia MD [address] [place] [phone] [email or web address] PCP - General 12/04/16 documented as of this encounter Additional Source Comments The information contained in this document represents components of the legal health record. It is not the complete legal health record.[facility]
--- OUTSIDE RECORDS SUMMARY | 2025-02-09 13:54 | XMS_ITS | Clinical Summary ---
Author Organization [facility] Address [address] [place] [address] Phone Care Team Providers Care Assisted Living Assistant Name Role Phone Carlos Correia MD Primary [...] 50 Admit Type: Outpatient Gender: Male Room: [place] [address] Referring MD: CARLOS CORREIA MD Exam Type: Colonoscopy Indications: [place]-rectal cancer screening Medications: Midazolam 4 mg IV, [...] 7:12 AM Procedure Code(s): --- Professional --- 08552, Colonoscopy, flexible; diagnostic, including collection of specimen(s) by brushing or washing, when performed (separateprocedure) --- Technical --- 88001, Colonoscopy, flexible; diagnostic, including collection of specimen(s) by brushing or washing, when performed (separateprocedure) CPT copyright 2016 [employer]. All rights reserved. The codes documented in this report are preliminary and upon certified substance abuse counselor reviewmay be revised to meet current compliance requirements. [address] [place] [address] Carlos Correia MD GI PROCEDURE ORDERABLES Mala l Result from Last 3 Months or Most Recently Relevant [place] [id number] [facility] EPO [facility] POS EPO [facility] POS EPO Care Teams Assisted Living Assistant Relationship Specialty Start Date End Date Carlos Correia MD [address] [place] [phone] [email or web address] PCP - General 12/04/16 Additional Source Comments The information contained in this document represents components of the legal health record. It is not the complete legal health record.[facility]
--- OUTSIDE RECORDS SUMMARY | 2025-02-09 13:54 | XMS_ITS | Patient Health Record ---
Author [facility] [place]entin [place] Address [address] [place] [address] Care Team Providers Care Buyer Assistant Name Role Phone Phil CABALLERO, [facility] Primary Care Provider Steve Alonzo Unavailable [phone] Allergies Allergen (clinical drug ingredient) Drug/Non Drug [...] W/U Status Risk Notes Problem Plantar wart (17975399) Plantar wart (B07.0) Active confirmed Plan Of Treatment Pending Test Test Name Order Date 70494-Zuml Destruction, 1-14 12/21/2020 57183-Yzdd Destruction, 03-0301/03/2021 19739-Ijbr Destruction, 03-0301/24/2021 87044-Xmrr Destruction, 03-0304/28/2021 92391-Rzfj Destruction, 03-0306/23/2021 74768-Fykc Destruction, 03-0307/14/2021 03810-Gftl Destruction, 03-0308/04/2021 64720-Vytt Destruction, 03-0309/05/2021 99752 - Punch Biopsy of Skin Lesion 11/18 99794 - Punch Biopsy of Skin Additional Lesions 12/05/2020 Insurance Providers Payer Name Payer Address Payer Phone Subscriber Number Group Number Insured Name Patient Relationship to Insured Coverage Start Date Coverage End Date [facility] [address] [place] [phone] [id number] Elmo Arriola Self - patient is the insured Medical (General) History Medical History History ICD Code Lipid disorder asthma Pre Diabetes Seborrheic dermatitis Warts tendonitis Surgical History Surgery Date(Month/Year) Testicular Torsion Repair 1984
== END 2025-02-09 13:32 | disposition home or self-care (01) ==
LOC: HO.HOS 12:50
PROVIDERS: PCP Internal Medicine; Visit Provider Orthopaedic Surgery
DX: M25.511 Pain in right shoulder (principal)
CPT/HCPCS: 99203

== ENCOUNTER 2025-02-15 17:08 | Outpatient (AMB) | payer BC, SELFPAY ==
[2025-02-15 17:16] VITALS: BP 118/68; PULSE 78; O2SAT 98; BMI 24.4
--- NOTE | 2025-02-15 17:16 | MHC.PC.OV ---
Vital Signs 02/15/25 17:16 Height 5 ft 9 in Weight 165 lb BMI 24.4 BP 118/68 Blood Pressure Location Lt brachial Position Sitting Pulse 78 Pulse Source Pulse Oximeter Pulse Oximetry (%) 98 Oxygen Delivery Method Room Air Intake Visit Reasons: hyperlipidemia, DM/IFG Allergies shrimp Allergy (Unknown, Verified 02/15/25 17:16) HIVES shellfish Allergy (Unknown, Uncoded 02/15/25 17:16) anaphylaxis Medication List - Last Reconciled 02/15/25 by Ida Ramey MD albuterol sulfate 90 mcg/actuation (ProAir HFA) 1 puff inhalation Q6H PRN atorvastatin (Lipitor) 80 mg PO DAILY 90 days metformin 500 mg PO BIDWMEAL Tobacco use date assessed: 10/14/24 Dental Screening Dental Screen Date: 10/14/24 HPI HPI Comments History of Present Illness Details History of Present Illness The patient is a 59-year-old male with a history of asthma, diabetes mellitus, hypercholesterolemia, and bilateral inguinal hernia presenting for a follow-up visit. His last physical exam was in June 2024 and his last colonoscopy was in 2017. Regarding his diabetes mellitus, he is not currently on any medication. Recent blood work from January showed a blood sugar of 107 mg/dL and a hemoglobin A1c of 6.7%, which is an increase from his previous value of 6.2%. He also had proteinuria on his recent urine test, which was not present on previous tests, suggesting early diabetic nephropathy. A diabetic eye exam in June 2024 was borderline without retinopathy. For hypercholesterolemia, his LDL cholesterol increased to 103 mg/dL from a previous 97 mg/dL. He is currently on atorvastatin 80 mg daily. The patient has been experiencing right shoulder pain and was seen by orthopedics in January 2023, who diagnosed impingement syndrome with a possible rotator cuff injury. He was referred for physical therapy, which did not provide relief, and was prescribed a steroid which he did not take. An MRI was advised if the pain persists. An ultrasound of the scrotum revealed a 1.1 cm epididymal head cyst, which was otherwise negative. Other lab findings from January included mild leukopenia with a normal blood count and no anemia, as well as normal electrolytes and renal and liver function. Health Maintenance - Last colonoscopy was in 2017. - A diabetic eye exam was completed in June 2024 and showed borderline findings without retinopathy. - The patient's hemoglobin A1c goal is less than 6.5%. - The patient's LDL cholesterol goal is less than 100 mg/dL and triglyceride goal is less than 150 mg/dL. - Vaccinations are up to date, including a recent flu shot. Social History - Activity: The patient reports being less active recently due to his right shoulder and arm issue. - Diet: The patient acknowledges his diet may have contributed to his recent lab results, reporting increased consumption of white rice during a recent trip to [place]. - He typically eats brown rice in smaller portions at home. - Family and Living: The patient's parents live in [place], and he has been spending more time there. - He grew up in [place] and has lived in his current location for 25-30 years. 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 Results - Labs (January 27): - CBC: Mild leukopenia, but normal blood count with no anemia. - CMP: Normal electrolytes and renal function. - Blood sugar of 107 mg/dL. - Liver function tests were fine. - Hemoglobin A1c: 6.7%. - Lipid Panel: LDL cholesterol of 103 mg/dL. - Urinalysis: Positive for proteinuria/albuminuria, with a value above 30. - Imaging: - Ultrasound of Scrotum: Showed a 1.1 cm epididymal head cyst, otherwise negative. - Other Tests: - Diabetic Eye Exam (June 2024): Borderline findings without retinopathy. [facility] Medical History (Updated 02/15/25 @ 17:19 by Ida Ramey MD) Diabetes mellitus Asthma Right tennis elbow Viral wart on finger Bilateral plantar wart Encounter for general adult medical examination with abnormal findings Lipid disorder Seborrheic dermatitis Asthma, mild Surgical History H/O colonoscopy History of torsion of testis Family History Father No problems noted. Mother No problems noted. Paternal Aunt Lung cancer Smoker Diabetes mellitus Maternal Grandfather Diabetes mellitus CVD (cardiovascular disease) Sister No problems noted. 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 Cognitive needs: No Hearing needs: No Vision needs: No Questionnaire Thrive Questionnaire Date Thrive assessed: 06/22/24 I am a: Patient What is your living situation today?: I have a steady place to live Within the past 12 months, did the food you bought not last and you didn't have the money to get more?: Never true Within the past 12 months, did you worry whether your food would run out before you got money to buy more?: Never true Do you have trouble paying for medicines?: No Do you have trouble getting transportation to medical appointments?: No Do you have trouble paying your heating and electricity bill?: No Do you have trouble taking care of your child, family member or friend?: No Do you have trouble with day-to-day activities such as bathing, preparing meals, shopping, managing finances, etc.?: No Are you currently unemployed and looking for a job?: No Are you interested in more education?: No Currently or been in a relationship where the following occur: No concerns reported THRIVE Score: 0 CHRIST-7 AMB Questionnaire CHRIST-7 Date CHRIST - 7 assessed: 06/29/24 Source: Developed by Drs. Elmo Mensah, Karen Cooper, Danial Weber and colleagues, with an educational tena from [employer]. Review of Systems Narrative Review of Systems - Musculoskeletal: Reports right shoulder pain. - Genitourinary: Reports a distracting and uncomfortable sensation in the testicles. - Denies testicular pain. Physical exam (Primary Care) Vital Signs: Oxygen Delivery Method Room Air 02/15/25 17:16 Tobacco/Smoking Status: Tobacco use Status Tobacco use date assessed 10/14/24 10/14/24 14:53 Patient Tobacco Use Status Never used Tobacco 10/14/24 14:53 e-Cigarette/Vaping Use Never Used 10/14/24 14:53 Thrive Assessment: Date of Thrive Assessment Date Thrive assessed 06/22/24 10/14/24 14:53 Currently or been in a relationship where the following occur: No concerns reported Narrative Physical Exam - General: Blood pressure is noted to be fine. - No formal examination was documented in the conversation. Const General: alert; No acute distress Eyes Conjunctivae: conjunctivae normal Resp Auscultation: clear to auscultation bilaterally Cardio Rate: regular rate Rhythm: regular rhythm GI Inspection: Yes normal to inspection Extrem General: Yes normal to inspection and No edema Coding Level of Care Code Est Pt Level 4 (95998) Add On Problem Visit Only Diagnoses Type 2 diabetes mellitus with hyperglycemia E11.65 Hypercholesterolemia E78.00 Diabetic nephropathy E11.21 Right shoulder pain M25.511 Assessment & Plan Assessment & Plan (1) Type 2 diabetes mellitus with hyperglycemia: Comment: vision works Ortez 06/2024 Code(s): E11.65 - Type 2 diabetes mellitus with hyperglycemia Category: Medical Plan: Decrease the amount of carbohydrate intake, pasta, bread, rice and potatoes are all sugar and that is aside from all the sweet stuff, remember that fruits are good but they are Sweet also. Hemoglobin A1c goal of less than 6.5. (2) Hypercholesterolemia: Code(s): E78.00 - Pure hypercholesterolemia, unspecified Category: Medical Plan: Avoid fried foods, chicken skin, eggs, butter margarine, pastries and meat. Be it pork or beef they have a lot of cholesterol LDL goal of less than 100 and triglyceride of less than 150. On atorvastatin 80 mg once a day (3) Diabetic nephropathy: Code(s): E11.21 - Type 2 diabetes mellitus with diabetic nephropathy Category: Medical Plan: Control the cholesterol, weight, blood pressure, diabetes (4) Right shoulder pain: Code(s): M25.511 - Pain in right shoulder Category: Medical Plan: Patient has seen Orthopedics, placed on physical therapy. Was told that if not any better will do an MRI Plan Plan Patient was informed and verbally consented to the use of an ambient scribe for clinic note documentation during this visit. 1. Diabetes Mellitus The patient's hemoglobin A1c has risen to 6.7%, which is above the goal of <6.5%. Due to the elevated A1c and new evidence of diabetic nephropathy, initiation of medical therapy is warranted. Will start metformin, to be taken twice a day with meals. The medication's mechanism of increasing the body's sensitivity to insulin and potential gastrointestinal side effects were discussed. A 30-day supply will be prescribed. Plan to repeat fasting blood work, including A1c and cholesterol, in three months to assess response to therapy. 2. Hypercholesterolemia The patient's LDL cholesterol has increased to 103 mg/dL, which is above the goal of <100 mg/dL. He is currently on the maximum dose of atorvastatin 80 mg. Options discussed included switching to a stronger statin or adding ezetimibe (Zetia). For now, the plan is to monitor and re-evaluate with repeat labs in three months, emphasizing diet and lifestyle modifications. 3. Right Shoulder Pain The patient has a diagnosis of impingement syndrome from orthopedics. He has not had relief from physical therapy. He was prescribed a steroid by orthopedics but did not take it. He should continue to follow the plan from orthopedics, which includes obtaining an MRI if his symptoms do not improve. 4. Diabetic Nephropathy Recent lab work showed new onset proteinuria, indicating that his diabetes is now affecting his kidneys. The importance of aggressive management of his diabetes was stressed to prevent progression. It was discussed that a blood pressure medication is often used to protect the kidneys in this situation, and this will be considered at follow-up based on future lab results. The primary intervention at this time is to improve glycemic control by starting metformin. 5. Epididymal Head Cyst The patient has a 1.1 cm epididymal head cyst found on ultrasound, which he describes as uncomfortable but not painful. Reassured the patient that cysts are common and typically do not require intervention. Advised to monitor and to follow up if significant pain develops, at which point a referral to urology would be considered. Discussion Notes I discussed the patient's recent lab results, highlighting the increase in his HbA1c to 6.7% and LDL to 103 mg/dL. I explained that because he did not take the prescribed steroids, the elevated blood sugar is a true reflection of his diabetes control. I expressed concern about the new finding of protein in his urine, explaining that this signifies the progression of diabetes and its effect on his kidneys. We discussed initiating metformin to help control his blood sugar. I explained its mechanism of action is to make his body more sensitive to the insulin he already produces, and I reviewed the common GI side effects like nausea and diarrhea. I also discussed that for his cholesterol, which is slightly above goal, we could either intensify his statin therapy or add another medication like Zetia, but we agreed to monitor this with repeat labs in three months for now. I explained that the treatment of diabetes often involves a trio of managing sugar, cholesterol, and protecting the kidneys, often with a blood pressure medication, and that we would monitor his kidney function closely. I advised him about the epididymal cyst, reassuring him that no action is needed unless it becomes painful. We arranged for a 30-day prescription of metformin and will follow up with fasting blood work in three months. Patient Instructions - Start taking Metformin twice a day with a meal as prescribed for your diabetes. - Be aware that this medication can cause stomach upset, nausea, or diarrhea, but these side effects are usually not severe. - It is very important to improve your diet and be more physically active to help lower your blood sugar and cholesterol levels. - The recent discovery of protein in your urine means your diabetes is starting to affect your kidneys, so getting your sugar under control is critical. - You will need to have a fasting blood test done in three months to check your blood sugar and cholesterol levels again. - Continue to follow up with your orthopedic doctor for your right shoulder pain. - If it does not get better, you may need to get an MRI as they suggested. - The cyst on your testicle does not require any treatment at this time. - Let us know if it becomes painful. - Please send a message through the patient portal for medication refills, especially since you will be away for two months. - Be careful during this flu season, and avoid contact with anyone who is coughing or sick. Orders: Orders Comprehensive Met. Panel 3 Months E11.65 - Type 2 diabetes mellitus with hyperglycemia Hemoglobin A1c 3 Months E11.65 - Type 2 diabetes mellitus with hyperglycemia Lipid Panel 3 Months E11.65 - Type 2 diabetes mellitus with hyperglycemia, E78.00 - Pure hypercholesterolemia, unspecified Medications: New metformin 500 mg PO BIDWMEAL 60 tabs 6RF E11.65 - Type 2 diabetes mellitus with hyperglycemia Discontinued methylprednisolone (Medrol (Ruddy)) Discontinued Reason: Patient no longer taking PO PER PKG DIR 21 ea 0RF
--- OUTSIDE RECORDS SUMMARY | 2025-02-15 18:06 | XMS_ITS | Clinical Summary ---
Author Organization [facility] Address [address] [place] [address] Phone Care Team Providers Care Ticket Dispatcher Name Role Phone Carlos Correia MD Primary [...] 50 Admit Type: Outpatient Gender: Male Room: [place] [address] Referring MD: CARLOS CORREIA MD Exam Type: Colonoscopy Indications: [place]-rectal cancer screening Medications: Midazolam 4 mg IV, [...] 7:12 AM Procedure Code(s): --- Professional --- 41006, Colonoscopy, flexible; diagnostic, including collection of specimen(s) by brushing or washing, when performed (separateprocedure) --- Technical --- 03794, Colonoscopy, flexible; diagnostic, including collection of specimen(s) by brushing or washing, when performed (separateprocedure) CPT copyright 2016 [employer]. All rights reserved. The codes documented in this report are preliminary and upon annual giving officer reviewmay be revised to meet current compliance requirements. [address] [place] [address] Carlos Correia MD GI PROCEDURE ORDERABLES Mala l Result from Last 3 Months or Most Recently Relevant [place] [id number] [facility] POS EPO [facility] POS EPO [facility] POS [facility]PO [facility] POS EPO [facility] POS [facility]PO [facility] POS EPO [facility] POS EPO [facility] POS EPO [facility] POS EPO Care Teams Ticket Dispatcher Relationship Specialty Start Date End Date Carlos Correia MD [address] [place] [id number] [email or web address] PCP - General 12/04/16 Additional Source Comments The information contained in this document represents components of the legal health record. It is not the complete legal health record.[facility]
--- OUTSIDE RECORDS SUMMARY | 2025-02-15 18:06 | XMS_ITS | Patient Health Record ---
[facility] Organization [facility] [place] Address [address] [place] [address] Care Team Providers Care Medical Office Asst Name Role Phone Phil CABALLERO, [facility] Primary Care Provider Steve Alonzo Unavailable [phone] Allergies Allergen (clinical drug ingredient) Drug/Non Drug [...] W/U Status Risk Notes Problem Plantar wart (46035870) Plantar wart (B07.0) Active confirmed Plan Of Treatment Pending Test Test Name Order Date 81592-Cmni Destruction, 1-14 12/21/2020 87893-Dpzw Destruction, 03-0301/03/2021 88593-Daeo Destruction, 03-0301/24/2021 37126-Ohpk Destruction, 03-0304/28/2021 30495-Ylms Destruction, 03-0306/23/2021 40152-Eosm Destruction, 03-0307/14/2021 94835-Llrm Destruction, 03-0308/04/2021 40425-Urgh Destruction, 03-0309/05/2021 45447 - Punch Biopsy of Skin Lesion 11/18 27411 - Punch Biopsy of Skin Additional Lesions 12/05/2020 Insurance Providers Payer Name Payer Address Payer Phone Subscriber Number Group Number Insured Name Patient Relationship to Insured Coverage Start Date Coverage End Date [facility] [id number] [place] [phone] [id number] Elmo Arriola Self - patient is the insured Medical (General) History Medical History History ICD Code Lipid disorder asthma Pre Diabetes Seborrheic dermatitis Warts tendonitis Surgical History Surgery Date(Month/Year) Testicular Torsion Repair 1984
--- OUTSIDE RECORDS SUMMARY | 2025-02-15 18:06 | XMS_ITS | Encounter Summary ---
Author Organization [facility] Address [address] [place] [phone] Phone Care Team Providers Care Service Greeter Name Role Phone Carlos Correia MD Primary Care Provider [phone] Encounter Details Date Type Department Care Team (Late st Contact Info) Description 05/15/2017 Procedure Pass [facility] Endoscopy Admitting Dept Virtual Department [address] [place] [address] Social History Tobacco Use Types Packs/Day Years [...] on filedocumented in this encounter Care Teams Service Greeter Relationship Specialty Start Date End Date Carlos Correia MD [address] [place] [phone] [email or web address] PCP - General 12/04/16 documented as of this encounter Additional Source Comments The information contained in this document represents components of the legal health record. It is not the complete legal health record.[facility]
== END 2025-02-15 17:35 | disposition home or self-care (01) ==
LOC: HO.HMCH 17:08
PROVIDERS: PCP Internal Medicine; Visit Provider Internal Medicine
DX: E11.65 Type 2 diabetes mellitus with hyperglycemia (principal); E78.00 Pure hypercholesterolemia, unspecified; E11.21 Type 2 diabetes mellitus with diabetic nephropathy; M25.511 Pain in right shoulder